=== PATIENT | male | born 1950 | race Two or more races ===

== ENCOUNTER 2024-12-23 04:31 | Inpatient (IN) | payer OTHER, MEDICARE, MEDICAID ==
[~2024-12-23] VITALS: Ht 182.9 cm; Wt 61.1 kg
--- NOTE | 2024-12-23 04:42 | ED.PDOC ---
History of Present Illness HPI Comments 74-year-old male brought in by EMS presents with abnormal labs. Patient is non- verbal at baseline. Patient is coming from [facility]. Patient reportedly had abnormal lab values from blood drawn 2 days ago. Labs were Creatinine, Potassium, and BUN. Patient denies any complaints at this time. Chief Complaint: Abnormal LAB's Time Seen by MD: 04:38 Primary Care Provider: UNKNOWN Reviewed Notes: Medications, Allergies Allergies: Coded Allergies: NO KNOWN ALLERGIES (Unverified , 08/23/17) Home Meds Unable to Obtain Active Prescriptions or Reported Meds Information Source: Emergency Med Personnel Mode of Arrival: EMS Severity: Moderate Timing: Hours Duration: Since onset Prehospital treatment: Pre Press Operator Past Medical History PAST MEDICAL HISTORY: HTN Surgical History: Denies all surgeries Family History Family History: Reviewed,noncontributory to illness Social History Smoker: Non-Smoker Alcohol: Denies ETOH Use Drugs: Denies Drug Use Lives In: Group Home Constitutional: denies: chills, diaphoresis, fatigue, fever, malaise, sweats, weakness, others EENTM: denies: blurred vision, double vision, ear bleeding, ear discharge, ear drainage, ear pain, ear ringing, eye pain, eye redness, hearing loss, mouth pain, mouth swelling, nasal discharge, nose bleeding, nose congestion, nose pain, photophobia, tearing, throat pain, throat swelling, voice changes, others Respiratory: denies: cough, hemoptysis, orthopnea, SOB at rest, shortness of breath, SOB with excertion, stridor, wheezing, others Cardiovascular: denies: chest pain, dizzy spells, diaphoresis, Dyspnea on exertion, edema, irregular heart beat, left arm pain, lightheadedness, palpitati ons, PND, syncope, others Gastrointestinal: denies: abdomen distended, abdominal pain, blood streaked bowels, constipated, diarrhea, dysphagia, difficulty swallowing, hematemesis, melena, nausea, poor appetite, poor fluid intake, rectal bleeding, rectal pain, vomiting, others Genitourinary: denies: burning, dysuria, flank pain, frequency, hematuria, incontinence, penile discharge, penile sore, pain, testicle pain, testicle swelling, urgency, others Neurological: denies: dizziness, fainting, headache, left sided numbness, left sided weakness, numbness, paresthesia, pre-existing deficit, right sided numbness, right sided weakness, seizure, speech problems, tingling, tremors, weakness, others Musculoskeletal: denies: back pain, gout, joint pain, joint swelling, muscle pain, muscle stiffness, neck pain, others Integumetry: denies: bruises, change in color, change in hair/nails, dryness, laceration, lesions, lumps, rash, wounds, others Allergic/Immunocompromised: denies: Difficulty Healing, Frequent Infections, Hives, Itching, others Hematologic/Lymphatic: denies: anemia, blood clots, easy bleeding, easy bruising, swollen glands, others Endocrine: denies: excessive hunger, excessive sweating, excessive thirst, excessive urination, flushing, intolerance to cold, intolerance to heat, unexplained weight gain, unexplained weight loss, others Psychiatric: denies: anxiety, bipolar disorder, depression, hopeless, panic disorder, schizophrenia, sleepless, suicidal, others All Other Systems: Reviewed and Negative Physical Exam General Appearance: No Apparent Distress, Normal HEENT: Normal ENT Inspection, Pharynx Normal, TMs Normal Neck: Full Range of Motion, Non-Tender, Normal, Normal Inspection Respiratory: Chest Non-Tender, Lungs Clear, No Accessory Muscle Use, No Respiratory Distress, Normal Breath Sounds Cardiovascular: No Edema, No JVD, No Murmur, No Gallop, Normal Peripheral Pulses, Regular Rate/Rhythm Breast Exam: Deferred Gastrointestinal: No Organomegaly, Non Tender, No Pulsatile Mass, Normal Bowel Sounds, Soft Genitalia: Deferred Pelvic: Deferred Rectal: Deferred Extremities: No calf tenderness, Normal capillary refill, Normal inspection, Normal range of motion, Non-tender, No pedal edema Musculoskeletal : Apperance: Normal Neurologic: Alert, Normal Mood, No Sensory Deficits Cerebellar Function: Normal Reflexes: Normal Skin: Dry, Normal Color, Warm Lymphatic: No Adenopathy Was a procedure done? Was a procedure done?: No Differential Dx Considerations may include: Dehydration, electrolyte abnormality, infectious etiology X-Ray, Labs, Meds, VS Vital Signs Date Time Temp Pulse Resp B/P (MAP) Pulse Ox O2 Delivery O2 Flow Rate FiO2 12/23/24 05:06 97.9 62 10 176/89 (118) 98 97.9 12/23/24 05:06 62 10 98 Room Air* 0 21 12/23/24 04:34 97.6 70 18 166/94 (118) 94 97.6 Lab Test 12/23/24 04:55 Range/Units White Blood Count 4.2 L 4.4-10.8 10^3/uL Red Blood Count 2.94 L 4.5-5.90 10^6/uL Hemoglobin 8.7 L 13.5-17.5 g/dL Hematocrit 27.1 L 41.0-53.0 % Mean Corpuscular Volume 92.1 80.0-100.0 fL Mean Corpuscular Hemoglobin 29.5 28.0-32.0 pg Mean Corpuscular Hemoglobin Concent 32.0 32.0-36.0 g/dL Red Cell Distribution Width 15.6 H 11.8-14.3 % Platelet Count 184 140-450 10^3/uL Mean Platelet Volume 7.7 6.9-10.8 fL Neutrophils (%) (Auto) 48.1 37.0-80.0 % Lymphocytes (%) (Auto) 40.5 10.0-50.0 % Monocytes (%) (Auto) 9.6 0.0-12.0 % Eosinophils (%) (Auto) 1.5 0.0-7.0 % Basophils (%) (Auto) 0.3 0.0-2.0 % Neutrophils # (Auto) 2.0 1.6-8.6 10 ^3/uL Lymphocytes # (Auto) 1.7 0.4-5.4 10 ^3/uL Monocytes # (Auto) 0.4 0-1.3 10 ^3/uL Eosinophils # (Auto) 0.1 0-0.8 10 ^3/uL Basophils # (Auto) 0 0-0.2 10 ^3/uL Nucleated Red Blood Cells 0.1 % Sodium Level 134 L 136-145 mmol/L Potassium Level 7.5 *H 3.5-5.1 mmol/L Chloride Level 100 98-107 mmol/L Carbon Dioxide Level 21 20-31 mmol/L Anion Gap 13 5-15 Blood Urea Nitrogen 129 *H 9-23 mg/dL Creatinine 10.20 *H 0.700-1.30 mg/dL Glomerular Filtration Rate Calc 5 >90 mL/min BUN/Creatinine Ratio 12.6 10.0-20.0 Serum Glucose 84 74-106 mg/dL Calcium Level 9.7 8.7-10.4 mg/dL Phosphorus Level 9.4 H 2.4-5.1 mg/dL Magnesium Level 2.6 1.6-2.6 mg/dL Troponin I High Sensitivity 45 </=54 ng/L Time of 1ST Reevaluation: 05:08 Reevaluation 1ST: Unchanged Patient Education/Counseling: Diagnosis, Treatment, Prognosis Family Education/Counseling: No Family Present Departure 1 Departure Time of Disposition: 06:03 (Patient with new onset renal failure. We will treat patient for hyper K consult with nephrology and admit patient for further workup) Impression: Primary Impression: Acute renal failure Qualified Codes: N17.9 - Acute kidney failure, unspecified Additional Impression: Hyperkalemia Disposition: 09 ADMITTED INPATIENT Admit to: [facility] Condition: Critical e-Prescriptions Unable to Obtain Active Prescriptions or Reported Meds Critical Care Note Critical Care Time?: Yes Critical care comment: Acute renal failure Authorized and Performed by: Nilda Landin MD Total critical care time: Approximately 44 minutes Due to a high probability of clinically significant, life threatening deterioration, the patient required my highest level of preparedness to intervene emergently and I personally spent this critical care time directly and personally managing the patient. This critical care time included obtaining a history; examining the patient; pulse oximetry; ordering and review of studies; arranging urgent treatment with development of a management plan; evaluation of patient's response to treatment; frequent reassessment; and, discussions with other providers. This critical care time was performed to assess and manage the high probability of imminent, life-threatening deterioration that could result in multi-organ failure. It was exclusive of separately billable procedures and treating other patients and teaching time. Please see my other sections and the rest of the note for further information on patient assessment and treatment. Stability Stability form required: No Heart Score Heart Score: Heart Score Response (Comments) Value History N/A 0 EKG N/A 0 Age N/A 0 Risk Factors N/A 0 Troponin N/A 0 Total 0 I personally scribed for NILDA LANDIN MD ([email or web address]) on 12/23/24 at 04:42. Electronically submitted by Rakan Ray ([email or web address]). NILDA LANDIN MD Dec 23, 2024 04:42
[2024-12-23 05:06] VITALS: PULSE 62; RESP 10; O2SAT 98
[2024-12-23 05:41] LABS: Basophils # (auto) 0 10 ^3/uL (0-0.2); Basophils % (auto) 0.3 % (0.0-2.0); Eosinophils # (auto) 0.1 10 ^3/uL (0-0.8); Eosinophils % (auto) 1.5 % (0.0-7.0); Hematocrit 27.1 % (41.0-53.0); Hemoglobin 8.7 g/dL (13.5-17.5); Lymphocytes # (auto) 1.7 10 ^3/uL (0.4-5.4); Lymphocytes % (auto) 40.5 % (10.0-50.0); Mean Corpuscular Hemoglobin 29.5 pg (28.0-32.0); Mean Corpuscular Volume 92.1 fL (80.0-100.0); Monocytes # (auto) 0.4 10 ^3/uL (0-1.3); Monocytes % (auto) 9.6 % (0.0-12.0); Neutrophils % (auto) 48.1 % (37.0-80.0); Nucleated Red Blood Cells % 0.1 %; Platelet Count (auto) 184 10^3/uL (140-450); Red Blood Cells 2.94 10^6/uL (4.5-5.90); Red Cell Distribution Width 15.6 % (11.8-14.3); White Blood Cell 4.2 10^3/uL (4.4-10.8)
[2024-12-23 05:43] LABS: Anion Gap 13 (5-15); Carbon Dioxide 21 mmol/L (20-31); Chloride 100 mmol/L (98-107)
[2024-12-23 05:44] LABS: Calcium 9.7 mg/dL (8.7-10.4)
[2024-12-23 05:49] LABS: BUN/Creatinine Ratio 12.6 (10.0-20.0); Glucose 84 mg/dL (74-106); Magnesium 2.6 mg/dL (1.6-2.6)
[2024-12-23 05:57] LABS: Sodium 134 mmol/L (136-145)
[2024-12-23 05:58] LABS: Phosphorus 9.4 mg/dL (2.4-5.1)
[2024-12-23 05:59] LABS: Blood Urea Nitrogen 129 mg/dL (9-23); Potassium 7.5 mmol/L (3.5-5.1)
--- NOTE | 2024-12-23 06:01 | DVH ---
EXAM: XR Chest, 1 View CLINICAL INDICATION: ams TECHNIQUE: Frontal view of the chest. COMPARISON: None FINDINGS: LUNGS AND PLEURAL SPACES: Left basilar atelectasis or pneumonia. No pneumothorax. HEART: Unremarkable. No cardiomegaly. MEDIASTINUM: Unremarkable. Normal mediastinal contour. BONES/JOINTS: Unremarkable. No acute fracture. OTHER FINDINGS: . . . IMPRESSION: Left basilar atelectasis or pneumonia.
[2024-12-23] MEDS: AZITHROMYCIN 250 MG TAB PO ONE (06:15)
[2024-12-23] MEDS: CALCIUM GLUC 1,000mg/50ml-NS 50 ML IV SCH (06:19)
[2024-12-23] MEDS: DEXTROSE (50%) 50ML SYRG IV ONE ×2 (06:19→20:03)
[2024-12-23] MEDS: SODIUM BICARB 8.4% 50Meq/50ml SYR Vial IV ONE (06:19)
[2024-12-23] MEDS: InsuLIN REG 1unit/0.01ml Soln (100units/ml) IV ONE ×2 (06:19→20:11)
[2024-12-23] MEDS: SODIUM CHLORIDE 0.9% 1,000 ML IV ONE (06:30)
--- NOTE | 2024-12-23 06:34 | ECG ---
[facility] Test Date: 2024-12-23 Test Time: 06:32:08 Pat Name: JANA VELASQUEZ Department: ED Room: [address] [place] [address] Gender: M Doors Prefitter: KATYA : 1950 Requested By: NILDA HERNANDES Order Number: [id number] Reading MD: Jovany Garcia Measurements Intervals [place] Rate: 69 P: 38 [place]: 239 QRS: -26 QRSD: 119 T: 17 QT: 426 QTc: 457 Interpretive Statements Sinus rhythm Prolonged [place] interval Nonspecific intraventricular conduction delay Probable anterior infarct, old Electronically Signed On 12-23-2024 13:21:51 PDT by Jovany Garcia Please click the below link to view image of tracing.
[2024-12-23] MEDS: CEFEPIME 2GM/50ML NS 50 ML IV ONE (06:50)
[2024-12-23] MEDS ORDERED: NITROGLYCERIN 0.4 MG SL TAB SL PRN (07:00)
[2024-12-23] MEDS ORDERED: ACETAMINOPHEN 325 MG TAB PO PRN (07:00)
[2024-12-23] MEDS ORDERED: MORPHINE SULFATE INJ 2 MG/ml SYRG IV PRN (07:00)
[2024-12-23] MEDS ORDERED: ONDANSETRON HCL 4 MG/2 ML VIAL IV PRN (07:00)
--- NOTE | 2024-12-23 07:57 | DVHHP2 ---
History of Present Illness Reason for Visit: Abnormal Labs History of Present Illness Henry Gates is a 74-year-old male who came to the hospital from [facility], unknown past medical history, who came due to abnormal labs. Patient had labs drawn on 12/22/2024 that revealed critically elevated BUN, CREAT, and KCL. When patient arrived to the ER, labs were drawn that showed similar results. Hyperkalemia protocol was initiated, patient will be admitted, and nephrology consulted. Patient had labs drawn at [facility] on 12/15/2024 that showed normal lab values for BUN, CREAT, and KCL. Patient will be admitted with a nephrology consult. I ordered for a Jane catheter to be placed. When the nurse went to place it she discovered that his urethra was mostly closed and no catheter could be placed. On assessment his urethra is mostly closed, he has a pin sized opening with continuous small drip of urine coming out. The penis is edematous, his bladder is distended and firm. I called urology for a suprapubic catheter placement. They are not able to come to bedside at this moment. They recommended an IR consult for immediate suprapubic catheter placement. Obtained a bladder scan that showed more than 1000 mls of urine. Spoke with IR, will get PT/PTT labs and bladder ultrasound, and they will add the patient into their schedule. Past Surgical History unknown Smoke: No ALCOHOL: none Drugs: None Lives: Shelter Review of Systems Constitutional: No: Fever, Chills, Sweats, Weakness, Malaise, Other Eyes: No: Pain, Vision change, Conjunctivae inflammation, Eyelid inflammation, Other, Redness ENT: No: Ear pain, Ear discharge, Nose pain, Nose discharge, Nose congestion, Mouth pain, Mouth swelling, Throat pain, Throat swelling, Other Respiratory: No: Cough, Dry, Shortness of breath, SOB with excertion, Wheezing, Hemoptysis, Pleuritic Pain, Sputum, Wheezing, Other Cardiovascular: No: Chest Pain, Palpitations, Orthopnea, Paroxysmal Noc. Dyspnea, Edema, Lt Headedness, Other Gastrointestinal: No: Nausea, Vomiting, Abdominal Pain, Diarrhea, Constipation, Melena, Hematochezia, Other Genitourinary: No Dysuria, No Frequency, No Incontinence, No Hematuria, No Retention, No Other Musculoskeletal: No: other, neck pain, shoulder pain, arm pain, back pain, hand pain, leg pain, foot pain Skin: No: Rash, Lesions, Jaundice, Bruising, Other Neurological: No: Weakness, Numbness, Incoordination, Change in speech, Confusion, Seizures, Other Other no complaints at this time, came for abnormal labs Allergies: Coded Allergies: NO KNOWN ALLERGIES (Unverified , 08/23/17) Medications Current Medications Medications Dose Ordered Sig/Isaias Route Start Time Stop Time Status Last Admin Dose Admin Ondansetron HCl 4 mg Q4HP PRN IV 12/23/24 07:00 UNV Acetaminophen 650 mg Q6HP PRN PO 12/23/24 07:00 UNV Nitroglycerin 0.4 mg Q5MINP PRN SL 12/23/24 07:00 UNV Morphine Sulfate 2 mg Q30M PRN IV 12/23/24 07:00 UNV Exam Vital Signs Vital Signs Date Time Temp Pulse Resp B/P (MAP) Pulse Ox O2 Delivery O2 Flow Rate FiO2 12/23/24 06:32 69 12/23/24 05:06 97.9 10 176/89 (118) 98 97.9 12/23/24 05:06 Room Air* 0 21 General Appearance: Alert, Cooperative, mild distress, Other (Oriented x 2) HEENT: Atraumatic, PERRLA Respiratory: Clear to auscultation, Normal air movement Cardiovascular: Regular rate, Normal S1, Normal S2 Abdominal: Normal bowel sounds, No tenderness, Other (Pelvic distention and firm, penis is edematous, urethra is leaking small amounts of urine) Extremities: No clubbing, No cyanosis, No edema, Normal pulses Skin: No rashes, No breakdown, No significant lesion (multiple scabs on bilateral lower extremities) Labs/Xrays Labs Test 12/23/24 06:15 12/23/24 04:55 Range/Units Lactic Acid Level 0.6 0.4-2.0 mmol/L White Blood Count 4.2 L 4.4-10.8 10^3/uL Red Blood Count 2.94 L 4.5-5.90 10^6/uL Hemoglobin 8.7 L 13.5-17.5 g/dL Hematocrit 27.1 L 41.0-53.0 % Mean Corpuscular Volume 92.1 80.0-100.0 fL Mean Corpuscular Hemoglobin 29.5 28.0-32.0 pg Mean Corpuscular Hemoglobin Concent 32.0 32.0-36.0 g/dL Red Cell Distribution Width 15.6 H 11.8-14.3 % Platelet Count 184 140-450 10^3/uL Mean Platelet Volume 7.7 6.9-10.8 fL Neutrophils (%) (Auto) 48.1 37.0-80.0 % Lymphocytes (%) (Auto) 40.5 10.0-50.0 % Monocytes (%) (Auto) 9.6 0.0-12.0 % Eosinophils (%) (Auto) 1.5 0.0-7.0 % Basophils (%) (Auto) 0.3 0.0-2.0 % Neutrophils # (Auto) 2.0 1.6-8.6 10 ^3/uL Lymphocytes # (Auto) 1.7 0.4-5.4 10 ^3/uL Monocytes # (Auto) 0.4 0-1.3 10 ^3/uL Eosinophils # (Auto) 0.1 0-0.8 10 ^3/uL Basophils # (Auto) 0 0-0.2 10 ^3/uL Nucleated Red Blood Cells 0.1 % Sodium Level 134 L 136-145 mmol/L Potassium Level 7.5 *H 3.5-5.1 mmol/L Chloride Level 100 98-107 mmol/L Carbon Dioxide Level 21 20-31 mmol/L Anion Gap 13 5-15 Blood Urea Nitrogen 129 *H 9-23 mg/dL Creatinine 10.20 *H 0.700-1.30 mg/dL Glomerular Filtration Rate Calc 5 >90 mL/min BUN/Creatinine Ratio 12.6 10.0-20.0 Serum Glucose 84 74-106 mg/dL Calcium Level 9.7 8.7-10.4 mg/dL Phosphorus Level 9.4 H 2.4-5.1 mg/dL Magnesium Level 2.6 1.6-2.6 mg/dL Troponin I High Sensitivity 45 </=54 ng/L EXAM: XR Chest, 1 View FINDINGS: LUNGS AND PLEURAL SPACES: Left basilar atelectasis or pneumonia. No pneumothorax. HEART: Unremarkable. No cardiomegaly. MEDIASTINUM: Unremarkable. Normal mediastinal contour. BONES/JOINTS: Unremarkable. No acute fracture. OTHER FINDINGS: . . . IMPRESSION: Left basilar atelectasis or pneumonia. Assessment/Plan Assessment/Plan Assessment: Acute renal failure, Hyperkalemia, Urinary retention, Pneumonia, Anemia, Plan: Admit to [facility], Nephrology consult, Urology consult, IV hydration, IV antibiotics, Hyperkalemia protocol, Manage/Monitor electrolytes closely, Suprapubic catheter, Plan discussed with: Patient My Orders Orders - LEANNA SMITH DISPATCHER REFINERY Procedure Category Date Status Time Insert Jane Catheter [facility] 12/23/24 In Process 06:54 Strict I & O [facility] 12/23/24 In Process 06:54 Admit ADMIT 12/23/24 Transmitted 06:54 Code Status CODE 12/23/24 Transmitted 06:54 Renal DIET 12/23/24 Transmitted Standard(2gna,3gk,Lopho) Breakfast Ondansetron Hcl [facility] 12/23/24 Logged (Zofran) 07:00 Fall Risk Precautions [facility] 12/23/[address] 06:54 Complete Blood Count LAB 12/24/24 Verified 04:00 Comprehensive LAB 12/24/24 Verified Metabolic Panel 04:00 Condition: Critical [facility] 12/23/24 In Process 06:54 Acetaminophen Tablet [facility] 12/23/24 Logged (Tylenol Tablet) 07:00 Nitroglycerin [facility] 12/23/24 Logged Sublingual (Ntrostat 07:00 Morphine Sulfate [facility] 12/23/24 Logged Injection 07:00 Stat Ekg For Chest [facility] 12/23/24 In Process Pain 06:54 Notify Md Of Changes [facility] 12/23/24 In Process From Base 06:54 [employer] Consultant For [facility] 12/23/24 In Process 24 Hours 06:54 Emergency Dysrhythmia [facility] 12/23/24 In Process Protocol 06:54 Rhythm Strips Once [facility] 12/23/24 In Process Every Shift 06:54 Oxygen By Nasal RT 12/23/24 Transmitted Cannula 06:54 *[facility] CONS 12/23/24 Transmitted -[place] 06:58 Date of Service: Dec 23, 2024 Billing Provider: LEANNA SMITH Common Visit Codes: [id number] INP/OBS CARE (HIGH) LEANNA SMITH DISPATCHER REFINERY Dec 23, 2024 07:57
[2024-12-23 08:00] VITALS: PULSE 64; RESP 12; O2SAT 95
[2024-12-23 10:10] LABS: INR 1.07 (0.9-1.15); Partial Thromboplastin Time 31.8 SEC (24.5-34.5); Prothrombin Time 11.3 sec (9.3-11.8)
[2024-12-23 10:14] LABS: Alanine Aminotransferase 16 U/L (7-40); Albumin 3.3 g/dL (3.2-4.8); Alkaline Phosphatase 91 U/L (46-116); Anion Gap 13 (5-15); BUN/Creatinine Ratio 13.3 (10.0-20.0); Calcium 9.5 mg/dL (8.7-10.4); Carbon Dioxide 22 mmol/L (20-31); Chloride 102 mmol/L (98-107); Sodium 137 mmol/L (136-145); Total Protein 6.6 g/dL (5.7-8.2)
[2024-12-23 10:15] LABS: Aspartate Aminotransferase 10 U/L (13-40); Bilirubin, Total 0.2 mg/dL (0.2-1.0); Glucose 71 mg/dL (74-106)
[2024-12-23 10:16] LABS: Blood Urea Nitrogen 134 mg/dL (9-23); Potassium 6.4 mmol/L (3.5-5.1)
[2024-12-23] MEDS: fentaNYL CITRATE 100 MCG/2 ML VL IV ONE (10:45)
[2024-12-23] MEDS: MIDAZOLAM HCL 2MG/2ML 2ml VIAL (1mg/ml) IV ONE (10:45)
[2024-12-23] MEDS: LIDOCAINE 2%HCL (LOCAL ANESTH.) INJ 10ml MDV ONE (11:43)
--- NOTE | 2024-12-23 12:11 | DVH ---
History: urinary retention Comparison: None Technique: Grayscale and color Doppler ultrasound of the pelvis was obtained. Pre-and postvoid images of the bladder were obtained. FINDINGS/IMPRESSION: Bladder is distended measuring 1236 cc. Debris is present in the urinary bladder. Right ureteral jet is not visualized at this time.
[2024-12-23 12:48] LABS: Urine Bacteria FEW /hpf (None Seen); Urine Blood 1+ /uL (Negative); Urine Clarity Turbid (Clear); Urine Color Colorless (Yellow); Urine Mucus FEW (None Seen); Urine Protein, UAD Negative (Negative); Urine Specific Gravity 1.009 (1.001-1.035); Urine Squamous Epithelial Cell None Seen /hpf (<5); Urine Urobilinogen Normal (Negative); Urine WBC 212 /HPF (0-3)
[2024-12-23 12:57] LABS: Protein, Urine 10.1 mg/dL (1-14)
[2024-12-23 13:00] LABS: Creatinine, Urine 34.26 mg/dL (30.0-125.0)
[2024-12-23] MEDS: BUMETANIDE 2.5mg/10ml (0.25 mg/ml) INJ IV ONE (13:52)
[2024-12-23] MEDS: SODIUM BICARB 50mEq/50ml Vial 150 ML in D5W 5% 1,000 ML IV SCH (13:55)
--- NOTE | 2024-12-23 14:31 | DVHINCON2 ---
Date of service: Dec 23, 2024 Referring Physician Hospitalist Reason for Consultation Meatal stenosis Urinary retention History of Present Illness 74-year-old male who came to the hospital from [facility], unknown past medical history, who came due to abnormal labs. Patient had labs drawn on 12/22/2024 that revealed critically elevated BUN, CREAT, and KCL. When patient arrived to the ER, labs were drawn that showed similar results. Hyperkalemia protocol was initiated, patient will be admitted, and nephrology consulted. Patient had labs drawn at [facility] on 12/15/2024 that showed normal lab values for BUN, CREAT, and KCL. Patient will be admitted with a nephrology consult. I ordered for a Jane catheter to be placed. When the nurse went to place it she discovered that his urethra was mostly closed and no catheter could be placed. On assessment his urethra is mostly closed, he has a pin sized opening with continuous small drip of urine coming out. The penis is edematous, his bladder is distended and firm. I called urology for a suprapubic catheter placement. They are not able to come to bedside at this moment. They recommended an IR consult for immediate suprapubic catheter placement. Obtained a bladder scan that showed more than 1000 mls of urine. Spoke with IR, will get PT/PTT labs and bladder ultrasound, and they will add the patient into their schedule. Past Medical History unknown Past Surgical History Unknown Family History: FH: myocardial infarction G8 FATHER Allergies: Coded Allergies: NO KNOWN ALLERGIES (Unverified , 08/23/17) Home Meds Unable to Obtain Active Prescriptions or Reported Meds Current Medications Current Medications Medications (Trade) Dose Ordered Sig/Isaias Route PRN Reason Start Time Stop Time Status Last Admin Calcium Gluconate/ Sodium Chloride 50 ml @ 100 mls/hr Q30M IV 12/23/24 06:00 12/23/24 06:59 DC 12/23/24 06:30 Ondansetron HCl (Zofran) 4 mg Q4HP PRN IV NAUSEA / VOMITING 12/23/24 07:00 Acetaminophen (Tylenol Tablet) 650 mg Q6HP PRN PO PAIN SCALE 1-3 OR TEMP>100.4 12/23/24 07:00 Nitroglycerin (Ntrostat Sublingual) 0.4 mg Q5MINP PRN SL FOR CHEST PAIN 12/23/24 07:00 Morphine Sulfate 2 mg Q30M PRN IV FOR CHEST PAIN 12/23/24 07:00 Sodium Bicarbonate 150 ml/Dextrose 1,150 ml @ 100 mls/hr [id number] IV 12/23/24 08:00 12/23/24 13:55 Ceftriaxone Sodium 50 ml @ 100 mls/hr DAILY@09 IV 12/24/24 09:00 Azithromycin 250 ml @ 125 mls/hr DAILY IV 12/24/24 10:00 Review of Systems Constitutional: No: Fever, Chills, Sweats, Weakness, Malaise, Other Eyes: No: Pain, Vision change, Conjunctivae inflammation, Eyelid inflammation, Other, Redness ENT: No: Ear pain, Ear discharge, Nose pain, Nose discharge, Nose congestion, Mouth pain, Mouth swelling, Throat pain, Throat swelling, Other Respiratory: No: Cough, Dry, Shortness of breath, SOB with excertion, Wheezing, Hemoptysis, Pleuritic Pain, Sputum, Wheezing, Other Cardiovascular: No: Chest Pain, Palpitations, Orthopnea, Paroxysmal Noc. Dyspnea, Edema, Lt Headedness, Other Gastrointestinal: No: Nausea, Vomiting, Abdominal Pain, Diarrhea, Constipation, Melena, Hematochezia, Other Genitourinary: No Dysuria, No Frequency, No Incontinence, No Hematuria, No Retention, No Other Musculoskeletal: No: other, neck pain, shoulder pain, arm pain, back pain, hand pain, leg pain, foot pain Skin: No: Rash, Lesions, Jaundice, Bruising, Other Neurological: No: Weakness, Numbness, Incoordination, Change in speech, Confusion, Seizures, Other Other no complaints at this time, came for abnormal labs Allergies: Coded Allergies: NO KNOWN ALLERGIES (Unverified , 08/23/17) Medications Current Medications Medications Dose Ordered Sig/Isaias Route Start Time Stop Time Status Last Admin Dose Admin Ondansetron HCl 4 mg Q4HP PRN IV 12/23/24 07:00 UNV Acetaminophen 650 mg Q6HP PRN PO 12/23/24 07:00 UNV Nitroglycerin 0.4 mg Q5MINP PRN SL 12/23/24 07:00 UNV Morphine Sulfate 2 mg Q30M PRN IV 12/23/24 07:00 UNV Vital Signs Vital Signs Date Time Temp Pulse Resp B/P (MAP) Pulse Ox O2 Delivery O2 Flow Rate FiO2 12/23/24 13:52 154/84 12/23/24 13:00 62 12 97 12/23/24 08:00 97.6 97.6 12/23/24 08:00 Room Air* 0 21 Physical Exam Vital Signs Date Time Temp Pulse Resp B/P (MAP) Pulse Ox O2 Delivery O2 Flow Rate FiO2 12/23/24 06:32 69 12/23/24 05:06 97.9 10 176/89 (118) 98 97.9 12/23/24 05:06 Room Air* 0 21 General Appearance: Alert, Cooperative, mild distress, Other (Oriented x 2) HEENT: Atraumatic, PERRLA Respiratory: Clear to auscultation, Normal air movement Cardiovascular: Regular rate, Normal S1, Normal S2 Abdominal: Normal bowel sounds, No tenderness, Other (Pelvic distention and firm, penis is edematous, urethra is leaking small amounts of urine) Extremities: No clubbing, No cyanosis, No edema, Normal pulses Skin: No rashes, No breakdown, No significant lesion (multiple scabs on bilateral lower extremities) Labs/Diagnostic Data Labs Test 12/23/24 12:32 12/23/24 09:36 12/23/24 06:15 12/23/24 04:55 Range/Units Urine Color Colorless Yellow Urine Clarity Turbid H Clear Urine pH 7.0 5.0-9.0 Urine Specific [place] 1.009 1.001-1.035 Urine Protein Negative Negative Urine Ketones Negative Negative Urine Blood 1+ H Negative /uL Urine Nitrite Negative Negative Urine Bilirubin Negative Negative Urine Urobilinogen Normal Negative mg/dL Urine Leukocyte Esterase 3+ Negative /uL Urine RBC 179 0 - 3 /hpf Urine Microscopic WBC 212 H 0-3 /HPF Urine Squamous Epithelial Cells None seen <5 /hpf Urine Bacteria Few H None Seen /hpf Urine Mucus Few None Seen Urine Creatinine 34.26 30.0-125.0 mg/dL Urine Sodium 110 40-220 mmol/L Urine Glucose Normal Normal mg/dL Urine Total Protein 10.1 1-14 mg/dL Prothrombin Time 11.3 9.3-11.8 sec Prothrombin Time INR 1.07 0.9-1.15 Activated Partial Thromboplast Time 31.8 24.5-34.5 SEC Sodium Level 137 136-145 mmol/L Potassium Level 6.4 *H 3.5-5.1 mmol/L Chloride Level 102 98-107 mmol/L Carbon Dioxide Level 22 20-31 mmol/L Anion Gap 13 5-15 Blood Urea Nitrogen 134 *H 9-23 mg/dL Creatinine 10.05 *H 0.700-1.30 mg/dL Glomerular Filtration Rate Calc 5 >90 mL/min BUN/Creatinine Ratio 13.3 10.0-20.0 Serum Glucose 71 L 74-106 mg/dL Calcium Level 9.5 8.7-10.4 mg/dL Total Bilirubin 0.2 0.2-1.0 mg/dL Aspartate Amino Transferase (AST) 10 L 13-40 U/L Alanine Aminotransferase (ALT) 16 7-40 U/L Alkaline Phosphatase 91 46-116 U/L Total Protein 6.6 5.7-8.2 g/dL Albumin 3.3 3.2-4.8 g/dL Lactic Acid Level 0.6 0.4-2.0 mmol/L White Blood Count 4.2 L 4.4-10.8 10^3/uL Red Blood Count 2.94 L 4.5-5.90 10^6/uL Hemoglobin 8.7 L 13.5-17.5 g/dL Hematocrit 27.1 L 41.0-53.0 % Mean Corpuscular Volume 92.1 80.0-100.0 fL Mean Corpuscular Hemoglobin 29.5 28.0-32.0 pg Mean Corpuscular Hemoglobin Concent 32.0 32.0-36.0 g/dL Red Cell Distribution Width 15.6 H 11.8-14.3 % Platelet Count 184 140-450 10^3/uL Mean Platelet Volume 7.7 6.9-10.8 fL Neutrophils (%) (Auto) 48.1 37.0-80.0 % Lymphocytes (%) (Auto) 40.5 10.0-50.0 % Monocytes (%) (Auto) 9.6 0.0-12.0 % Eosinophils (%) (Auto) 1.5 0.0-7.0 % Basophils (%) (Auto) 0.3 0.0-2.0 % Neutrophils # (Auto) 2.0 1.6-8.6 10 ^3/uL Lymphocytes # (Auto) 1.7 0.4-5.4 10 ^3/uL Monocytes # (Auto) 0.4 0-1.3 10 ^3/uL Eosinophils # (Auto) 0.1 0-0.8 10 ^3/uL Basophils # (Auto) 0 0-0.2 10 ^3/uL Nucleated Red Blood Cells 0.1 % Phosphorus Level 9.4 H 2.4-5.1 mg/dL Magnesium Level 2.6 1.6-2.6 mg/dL Creatine Kinase 33 L 46-171 U/L Troponin I High Sensitivity 45 </=54 ng/L PATIENT: JANA VELASQUEZ ACCT: [id number] UNIT: [id number] : 1950 LOC: OVERFLOW ROOM / BED: [address] [place] [address] AGE / SEX: 74 / M ADM STATUS: ADM IN SERVICE [id number] ORDERING PHYSICIAN: LEANNA SMITH PROCEDURE(s): BLDR - BLADDER REASON: urinary retention ORDER NUMBER(s): [id number], ACCESSION NUMBER(s): [id number] History: urinary retention Comparison: None Technique: Grayscale and color Doppler ultrasound of the pelvis was obtained. Pre-and postvoid images of the bladder were obtained. FINDINGS/IMPRESSION: Bladder is distended measuring 1236 cc. Debris is present in the urinary bladder. Right ureteral jet is not visualized at this time. ATED BY: JASON ACE MD DICTATED DATE/TIME: 12/23/24 1209 SIGNED BY: JASON ACE MD SIGNED DATE/TIME: 12/23/24 1209 CC: Assessment Urethral stricture/meatal stenosis Azotemia Plan/Recommendation SPT placement When metabolic derrangement resolved, will need cystoscopy with DVIU and Jane catheter placement [place] CT Scan AP NC Plan discussed with: TYRON Funez MD Dec 23, 2024 14:31
--- NOTE | 2024-12-23 15:42 | DVHINCON2 ---
Date of service: Dec 23, 2024 Referring Physician Hospitalist Reason for Consultation Acute kidney injury History of Present Illness 74-year-old male patient is poor historian unable to obtain history patient presented from a chronic care facility due to abnormal labs. Was noted to have BUN greater than 100 and a potassium greater than six. Per records apparently patient had normal baseline renal function less than 30 days ago. Nephrology consulted for acute management. Patient had distended bladder Jane catheter was attempted but failed placement. Interventional Radiology was consulted and urology suprapubic catheter was placed Allergies: Coded Allergies: NO KNOWN ALLERGIES (Unverified , 08/23/17) Home Meds Unable to Obtain Active Prescriptions or Reported Meds Current Medications Current Medications Medications (Trade) Dose Ordered Sig/Isaias Route PRN Reason Start Time Stop Time Status Last Admin Calcium Gluconate/ Sodium Chloride 50 ml @ 100 mls/hr Q30M IV 12/23/24 06:00 12/23/24 06:59 DC 12/23/24 06:30 Ondansetron HCl (Zofran) 4 mg Q4HP PRN IV NAUSEA / VOMITING 12/23/24 07:00 Acetaminophen (Tylenol Tablet) 650 mg Q6HP PRN PO PAIN SCALE 1-3 OR TEMP>100.4 12/23/24 07:00 Nitroglycerin (Ntrostat Sublingual) 0.4 mg Q5MINP PRN SL FOR CHEST PAIN 12/23/24 07:00 Morphine Sulfate 2 mg Q30M PRN IV FOR CHEST PAIN 12/23/24 07:00 Sodium Bicarbonate 150 ml/Dextrose 1,150 ml @ 100 mls/hr [id number] IV 12/23/24 08:00 12/23/24 13:55 Ceftriaxone Sodium 50 ml @ 100 mls/hr DAILY@09 IV 12/24/24 09:00 Azithromycin 250 ml @ 125 mls/hr DAILY IV 12/24/24 10:00 Family History: FH: myocardial infarction G8 FATHER Review of Systems Can not obtain patient was nonverbal H&P Exam Vital Signs/I&O Vital Sign Date Time Temp Pulse Resp B/P (MAP) Pulse Ox O2 Delivery O2 Flow Rate FiO2 12/23/24 14:00 61 11 153/85 (107) 97 12/23/24 08:00 97.6 97.6 12/23/24 08:00 Room Air* 0 21 Intake and Output 12/22/24 12/23/24 19:00 07:00 Intake Total 100 ml Balance 100 ml IV Total 100 ml Physical Exam Frail elderly male Alert but nonverbal Regular rate and rhythm Abdomen is soft status post suprapubic Jane catheter with clear yellow urine No ankle edema Labs/Diagnostic Data Labs/Diagnostic Data Laboratory Tests Test 12/23/24 12:32 12/23/24 09:36 12/23/24 06:15 12/23/24 04:55 Range/Units Urine Color Colorless Yellow Urine Clarity Turbid H Clear Urine pH 7.0 5.0-9.0 Urine Specific [place] 1.009 1.001-1.035 Urine Protein Negative Negative Urine Ketones Negative Negative Urine Blood 1+ H Negative /uL Urine Nitrite Negative Negative Urine Bilirubin Negative Negative Urine Urobilinogen Normal Negative mg/dL Urine Leukocyte Esterase 3+ Negative /uL Urine RBC 179 0 - 3 /hpf Urine Microscopic WBC 212 H 0-3 /HPF Urine Squamous Epithelial Cells None seen <5 /hpf Urine Bacteria Few H None Seen /hpf Urine Mucus Few None Seen Urine Creatinine 34.26 30.0-125.0 mg/dL Urine Sodium 110 40-220 mmol/L Urine Glucose Normal Normal mg/dL Urine Total Protein 10.1 1-14 mg/dL Prothrombin Time 11.3 9.3-11.8 sec Prothrombin Time INR 1.07 0.9-1.15 Activated Partial Thromboplast Time 31.8 24.5-34.5 SEC Sodium Level 137 134 L 136-145 mmol/L Potassium Level 6.4 *H 7.5 *H 3.5-5.1 mmol/L Chloride Level 102 100 98-107 mmol/L Carbon Dioxide Level 22 21 20-31 mmol/L Anion Gap 13 13 5-15 Blood Urea Nitrogen 134 *H 129 *H 9-23 mg/dL Creatinine 10.05 *H 10.20 *H 0.700-1.30 mg/dL Glomerular Filtration Rate Calc 5 5 >90 mL/min BUN/Creatinine Ratio 13.3 12.6 10.0-20.0 Serum Glucose 71 L 84 74-106 mg/dL Calcium Level 9.5 9.7 8.7-10.4 mg/dL Total Bilirubin 0.2 0.2-1.0 mg/dL Aspartate Amino Transferase (AST) 10 L 13-40 U/L Alanine Aminotransferase (ALT) 16 7-40 U/L Alkaline Phosphatase 91 46-116 U/L Total Protein 6.6 5.7-8.2 g/dL Albumin 3.3 3.2-4.8 g/dL Lactic Acid Level 0.6 0.4-2.0 mmol/L White Blood Count 4.2 L 4.4-10.8 10^3/uL Red Blood Count 2.94 L 4.5-5.90 10^6/uL Hemoglobin 8.7 L 13.5-17.5 g/dL Hematocrit 27.1 L 41.0-53.0 % Mean Corpuscular Volume 92.1 80.0-100.0 fL Mean Corpuscular Hemoglobin 29.5 28.0-32.0 pg Mean Corpuscular Hemoglobin Concent 32.0 32.0-36.0 g/dL Red Cell Distribution Width 15.6 H 11.8-14.3 % Platelet Count 184 140-450 10^3/uL Mean Platelet Volume 7.7 6.9-10.8 fL Neutrophils (%) (Auto) 48.1 37.0-80.0 % Lymphocytes (%) (Auto) 40.5 10.0-50.0 % Monocytes (%) (Auto) 9.6 0.0-12.0 % Eosinophils (%) (Auto) 1.5 0.0-7.0 % Basophils (%) (Auto) 0.3 0.0-2.0 % Neutrophils # (Auto) 2.0 1.6-8.6 10 ^3/uL Lymphocytes # (Auto) 1.7 0.4-5.4 10 ^3/uL Monocytes # (Auto) 0.4 0-1.3 10 ^3/uL Eosinophils # (Auto) 0.1 0-0.8 10 ^3/uL Basophils # (Auto) 0 0-0.2 10 ^3/uL Nucleated Red Blood Cells 0.1 % Phosphorus Level 9.4 H 2.4-5.1 mg/dL Magnesium Level 2.6 1.6-2.6 mg/dL Creatine Kinase 33 L 46-171 U/L Troponin I High Sensitivity 45 </=54 ng/L Assessment Severe acute kidney injury likely in the setting of obstruction Patient has urethra obstruction Status post suprapubic catheter Metabolic acidosis Hyperkalemia Anemia knife on setting of kidney disease Strict Is&Os on suprapubic catheter Clinically patient appears to be volume depleted started on sodium bicarbonate drip Monitoring urinary output Urology on the case sepsis w/u Avoid hypotension Medical treatment for elevated potassium , new labs No emergent indication for hemodialysis if patient response to medical therapy, patient however we will require close monitoring to determine adequate response critical care time 35min Plan discussed with: Patient JULIEN LANDON MD Dec 23, 2024 15:42
[2024-12-23 17:44] LABS: Chloride 98 mmol/L (98-107); Sodium 136 mmol/L (136-145)
[2024-12-23 17:45] LABS: Anion Gap 11 (5-15); Calcium 9.7 mg/dL (8.7-10.4); Carbon Dioxide 27 mmol/L (20-31)
[2024-12-23 17:50] LABS: BUN/Creatinine Ratio 13.6 (10.0-20.0)
[2024-12-23 17:52] LABS: Glucose 128 mg/dL (74-106)
[2024-12-23 17:53] LABS: Blood Urea Nitrogen 111 mg/dL (9-23); Potassium 5.9 mmol/L (3.5-5.1)
--- NOTE | 2024-12-23 18:23 | DVH ---
CLINICAL HISTORY: urinary retention TECHNIQUE: CT of the abdomen and pelvis was performed without intravenous contrast. This exam was per formed according to our departmental dose optimization program. Up-to-date CT equipment and radiation dose reduction techniques are utilized as appropriate. CTDI: 7.11 DLP: 363.31 WID: COMPARISON: None FINDINGS: Lower Thorax: Mild cardiomegaly with trace pericardial effusion. At least mild calcified coronary art flori disease partially imaged. Linear subsegmental atelectasis in the bilateral lower lobes. Calcified granuloma in the left lower lobe. Liver and Biliary system: The superior most dome of the liver is not included in the field of view. G rossly unremarkable unopacified liver. Gallbladder is normal caliber. There is no biliary ductal dila tation. Spleen: Unremarkable. Adrenal Glands and Kidneys: Normal adrenal glands. Mild bilateral hydroureteronephrosis leading to th e level of the urinary bladder. There is no nephrolithiasis. Pancreas and Retroperitoneum: Mildly atrophic pancreas. No retroperitoneal adenopathy. Aorta and Major Vessels: [id number] calcified plaque in the aortoiliac vessels. Ectasia of the bilateral internal iliac arteries. There is aneurysm of the infrarenal abdominal aorta measuring 3.4 cm transverse and 3.2 cm AP on series 601, image 47 and series 602, image 66. There is a dissection i n the infrarenal abdominal aorta extending to the left common iliac artery, not optimally evaluated w ithout contrast. Bowel, Mesentery and Peritoneal space: Normal caliber small and large bowel. Moderate retained stool in the colon. Normal appendix. No free air or fluid collection. Pelvis: Moderate distention of the urinary bladder. There is a suprapubic catheter / drain in place i nto the urinary bladder. Mild prostatomegaly. There is no pelvic lymphadenopathy. Abdominal wall and Osseous Structures: There is a dynamic hip screw in the proximal right femur. Mult ilevel lower thoracic and lumbar spondylosis. No destructive osseous lesion. Mild body wall edema. IMPRESSION: 1. Moderate distention of the urinary bladder with a suprapubic catheter / drain in place. 2. Mild bilateral hydroureteronephrosis leading to the level of the distended urinary bladder likely due to reflux. 3. Mild cardiomegaly and at least mild partially imaged calcified coronary artery disease. 4. 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
--- NOTE | 2024-12-23 19:40 | DVH ---
CT CT GUIDANCE FOR NEEDLE PLACEME, HISTORY: SUPRAPUBIC CATH PLCMNT unable to place a Jane catheter due to urinary retention and COMPARISON: None PROCEDURE: Informed consent was obtained. The patient was placed supine on the CT scanner. IV sedatio n was administered. There was localized using ultrasound guidance. The Super pubic region was cleaned and prepped sterility. Using ultrasound guidance a BD suprapubic catheter kit was used to trocar A6 [place] catheter into the urinary bladder. This was confirmed using CT guidance. It was then connected to a drainage bag and sutured in place. A sterile dressing was placed. Post procedure CT imaging thr ough the drain site was obtained. DLP = 723 mGy-cm. SEDATION: Dr. Shantel Bella was personally responsible for the administration of moderate sedation during the procedure performed, including the use of an independent trained observer who had no other duties during the procedure. The drugs utilized were IV fentanyl and versed (see nursing log for details). The total time of supervision by the attending physician was approximately 30 minutes. FINDINGS: Ultrasound and CT scan shows a distended urinary bladder. Placement of A6 sinhala suprapubic catheter into the urinary bladder. IMPRESSION: Ultrasound and CT scan shows a distended urinary bladder. Placement of A6 sinhala suprapubic catheter into the urinary bladder. PLAN: Routine tube care. If drainage is inadequate consider attaching A suction bag. Upsize or exchan ge is also suggested for a pigtail catheter if drainage is inadequate.
--- NOTE | 2024-12-23 19:40 | DVH ---
CT CT GUIDANCE FOR NEEDLE PLACEME, HISTORY: SUPRAPUBIC CATH PLCMNT unable to place a Jane catheter due to urinary retention and COMPARISON: None PROCEDURE: Informed consent was obtained. The patient was placed supine on the CT scanner. IV sedatio n was administered. There was localized using ultrasound guidance. The Super pubic region was cleaned and prepped sterility. Using ultrasound guidance a BD suprapubic catheter kit was used to trocar A6 [place] catheter into the urinary bladder. This was confirmed using CT guidance. It was then connected to a drainage bag and sutured in place. A sterile dressing was placed. Post procedure CT imaging thr ough the drain site was obtained. DLP = 723 mGy-cm. SEDATION: Dr. Shantel Bella was personally responsible for the administration of moderate sedation during the procedure performed, including the use of an independent trained observer who had no other duties during the procedure. The drugs utilized were IV fentanyl and versed (see nursing log for details). The total time of supervision by the attending physician was approximately 30 minutes. FINDINGS: Ultrasound and CT scan shows a distended urinary bladder. Placement of A6 romanian suprapubic catheter into the urinary bladder. IMPRESSION: Ultrasound and CT scan shows a distended urinary bladder. Placement of A6 romanian suprapubic catheter into the urinary bladder. PLAN: Routine tube care. If drainage is inadequate consider attaching A suction bag. Upsize or exchan ge is also suggested for a pigtail catheter if drainage is inadequate.
[2024-12-23 19:45] VITALS: PULSE 71; RESP 10; O2SAT 95
[2024-12-23] MEDS: FUROSEMIDE 100 MG/10ML VIAL IV ONE (20:03)
[2024-12-24 05:49] LABS: Basophils # (auto) 0 10 ^3/uL (0-0.2); Basophils % (auto) 0.3 % (0.0-2.0); Eosinophils # (auto) 0 10 ^3/uL (0-0.8); Eosinophils % (auto) 0.4 % (0.0-7.0); Hematocrit 31.4 % (41.0-53.0); Hemoglobin 10.3 g/dL (13.5-17.5); Lymphocytes # (auto) 1.2 10 ^3/uL (0.4-5.4); Lymphocytes % (auto) 24.3 % (10.0-50.0); Mean Corpuscular Hemoglobin 29.8 pg (28.0-32.0); Mean Corpuscular Hgb Conc. 32.9 g/dL (32.0-36.0); Mean Corpuscular Volume 90.4 fL (80.0-100.0); Monocytes # (auto) 0.4 10 ^3/uL (0-1.3); Monocytes % (auto) 8.6 % (0.0-12.0); Neutrophils # (auto) 3.3 10 ^3/uL (1.6-8.6); Neutrophils % (auto) 66.4 % (37.0-80.0); Nucleated Red Blood Cells % 0.1 %; Platelet Count (auto) 222 10^3/uL (140-450); Red Blood Cells 3.47 10^6/uL (4.5-5.90); Red Cell Distribution Width 15.8 % (11.8-14.3)
[2024-12-24 06:04] LABS: Alanine Aminotransferase 16 U/L (7-40); Alkaline Phosphatase 106 U/L (46-116); Anion Gap 12 (5-15); BUN/Creatinine Ratio 16.2 (10.0-20.0); Calcium 10.3 mg/dL (8.7-10.4); Potassium 4.7 mmol/L (3.5-5.1); Sodium 139 mmol/L (136-145)
[2024-12-24 06:05] LABS: Albumin 4.3 g/dL (3.2-4.8); Aspartate Aminotransferase 13 U/L (13-40); Bilirubin, Total 0.3 mg/dL (0.2-1.0)
[2024-12-24 06:29] LABS: Carbon Dioxide 34 mmol/L (20-31); Chloride 93 mmol/L (98-107); Glucose 133 mg/dL (74-106); Total Protein 8.6 g/dL (5.7-8.2)
[2024-12-24 06:30] LABS: Blood Urea Nitrogen 89 mg/dL (9-23)
[2024-12-24 07:30] VITALS: PULSE 75; RESP 13; O2SAT 96
[2024-12-24] MEDS: SODIUM CHLORIDE 0.9% 1,000 ML IV SCH (08:39)
[2024-12-24] MEDS: cefTRIAXone 1GM/50ML D5W 50 ML IV SCH (09:27)
[2024-12-24] MEDS: AZITHROMYCIN 500MG/ 250ML 250 ML IV SCH (10:26)
--- NOTE | 2024-12-24 11:15 | DVHPN2 ---
Subjective Patient is seen and examined at bedside. No complaint. Reviewed: Care Plan, H&P, Labs, Medications, Previous Orders, Radiology Changes from previous H/P or p: No Changes Eyes: No Pain, No Vision change, No Conjunctivae inflammation, No Eyelid inflammation, No Other, No Redness ENT: No Ear pain, No Ear discharge, No Nose pain, No Nose discharge, No Nose congestion, No Mouth pain, No Mouth swelling, No Throat pain, No Throat swelling, No Other Cardiovascular: No Chest Pain, No Palpitations, No Orthopnea, No Paroxysmal Noc. Dyspnea, No Edema, No Lt Headedness, No Other Respiratory: No Cough, No Dry, No Shortness of breath, No SOB with excertion, No Wheezing, No Hemoptysis, No Pleuritic Pain, No Sputum, No Other Gastrointestinal: No Nausea, No Vomiting, No Abdominal Pain, No Diarrhea, No Constipation, No Melena, No Hematochezia, No Other Genitourinary: No Dysuria, No Frequency, No Incontinence, No Hematuria, No Retention, No Other Musculoskeletal: No other, No neck pain, No shoulder pain, No arm pain, No back pain, No hand pain, No leg pain, No foot pain Skin: No Rash, No Lesions, No Jaundice, No Bruising, No Other Objective Vitals Vital Signs Date Time Temp Pulse Resp B/P (MAP) Pulse Ox O2 Delivery O2 Flow Rate FiO2 12/24/24 11:00 79 11 124/77 (93) 96 12/24/24 08:00 97.4 97.4 12/24/24 07:30 Room Air* 0 21 Intake/Output Intake and Output 12/24/24 07:00 Intake Total 2900 ml Output Total 7100 ml Balance -4200 ml Intake Oral 500 ml IV Total 2400 ml Output Urine Total 7100 ml General Appearance: Alert, Oriented X3, Cooperative, No acute distress HEENT: Atraumatic, PERRLA, EOMI, Mucous membr. moist/pink Neck: Supple Lungs: Clear to auscultation, Normal air movement Cardiovascular: Regular rate, Normal S1, Normal S2, No murmurs, Gallops Abdomen: Normal bowel sounds, Soft, No tenderness Neuro: Cranial nerves 3-12 NL Psych/Mental Status: Mental status NL Medications Current Medications Medications Dose Ordered Sig/Isaias Route Start Time Stop Time Status Last Admin Dose Admin Ondansetron HCl 4 mg Q4HP PRN IV 12/23/24 07:00 Acetaminophen 650 mg Q6HP PRN PO 12/23/24 07:00 Nitroglycerin 0.4 mg Q5MINP PRN SL 12/23/24 07:00 Morphine Sulfate 2 mg Q30M PRN IV 12/23/24 07:00 Ceftriaxone Sodium 50 ml @ 100 mls/hr DAILY@09 IV 12/24/24 09:00 12/24/24 09:27 100 MLS/HR Azithromycin 250 ml @ 125 mls/hr DAILY IV 12/24/24 10:00 12/24/24 10:26 125 MLS/HR Sodium Chloride 1,000 ml @ 150 mls/hr Q6H40M IV 12/24/24 07:30 12/24/24 08:39 150 MLS/HR Laboratory Results Laboratory Tests 12/24/24 05:08 Chemistry Test 12/23/24 17:10 12/24/24 05:08 Calcium Level 9.7 mg/dL (8.7-10.4) 10.3 mg/dL (8.7-10.4) Albumin 4.3 g/dL (3.2-4.8) Total Protein 8.6 g/dL (5.7-8.2) H LFT Test 12/24/24 05:08 Alanine Aminotransferase (ALT) 16 U/L (7-40) Alkaline Phosphatase 106 U/L (46-116) Aspartate Amino Transferase (AST) 13 U/L (13-40) Total Bilirubin 0.3 mg/dL (0.2-1.0) Urinalysis Test 12/23/24 12:32 Urine Color Colorless (Yellow) Urine Clarity Turbid (Clear) H Urine pH 7.0 (5.0-9.0) Urine Specific [place] 1.009 (1.001-1.035) Urine Protein Negative (Negative) Urine Ketones Negative (Negative) Urine Blood 1+ /uL (Negative) H Urine Nitrite Negative (Negative) Urine Bilirubin Negative (Negative) Urine Urobilinogen Normal mg/dL (Negative) Urine Leukocyte Esterase 3+ /uL (Negative) Urine RBC 179 /hpf (0 - 3) Urine Microscopic WBC 212 /HPF (0-3) H Urine Squamous Epithelial Cells None seen /hpf (<5) Urine Bacteria Few /hpf (None Seen) H Urine Mucus Few (None Seen) Urine Creatinine 34.26 mg/dL (30.0-125.0) Urine Sodium 110 mmol/L (40-220) Urine Glucose Normal mg/dL (Normal) Urine Total Protein 10.1 mg/dL (1-14) Microbiology Microbiology Date/Time Source Procedure Growth Status 12/23/24 06:15 Blood Blood Culture - Preliminary NO GROWTH AFTER 24 HOURS OF INCUBATION. Resulted Labs and/or images reviewed: Labs reviewed by me Assessment/Plan Assessment/Plan Acute renal failure, Hyperkalemia, Urinary retention, Pneumonia, Anemia, Continuing current management. Waiting for urologist to see the patient. Continuing IV antibiotic. Continuing pain medication. This medical document was created using an electronic medical record system with [employer] computerized dictation system. Although this document has been carefully reviewed, there may still be some phonetic and typographical errors. These areas are purely typographical due to imperfections of the software programs, and do not reflect any compromise in the patient's medical care. Plan discussed with: Patient My Orders Orders - ANGELO MUNIZ MD Procedure Category Date Status Time Ct Guidance For CT 12/23/24 Resulted Needle Placeme 11:[address] 12/23/24 Resulted 11:39 Date of Service: Dec 24, 2024 Billing Provider: ANGELO MUNIZ MD Common Visit Codes: [id number] INP/OBS CARE(HIGH) ANGELO MUNIZ MD Dec 24, 2024 11:15
[2024-12-24 16:45] VITALS: BP 139/80; PULSE 71; RESP 16; TEMP 98.2; O2SAT 96
[2024-12-24 17:00] VITALS: PULSE 79; RESP 18; O2SAT 98
[2024-12-24 20:00] VITALS: PULSE 78
[2024-12-24 21:00] VITALS: BP 127/83; PULSE 78; RESP 17; TEMP 98.4; O2SAT 96
[2024-12-25] VITALS (9 sets, daily range): BP systolic 138–169; BP diastolic 81–90; PULSE 61–77; RESP 16–17; TEMP 97.6–98.4; O2SAT 96–98
[2024-12-25 07:39] LABS: Anion Gap 10 (5-15); Calcium 9.6 mg/dL (8.7-10.4); Carbon Dioxide 27 mmol/L (20-31); Chloride 102 mmol/L (98-107); Potassium 3.8 mmol/L (3.5-5.1); Sodium 139 mmol/L (136-145)
[2024-12-25 07:45] LABS: BUN/Creatinine Ratio 22.4 (10.0-20.0); Glucose 91 mg/dL (74-106)
[2024-12-25 07:46] LABS: Blood Urea Nitrogen 46 mg/dL (9-23)
--- NOTE | 2024-12-25 08:47 | DVHPN2 ---
Progress Note - Dictate Date Seen: Dec 25, 2024 Medical Necessity Reason Pt with a Central, PICC or Fol: Yes The following are medically ne: Jane Catheter vital signs Vital Sign Date Time Temp Pulse Resp B/P (MAP) Pulse Ox O2 Delivery O2 Flow Rate FiO2 12/25/24 08:05 Room Air* 0 21 12/25/24 05:00 97.8 68 17 169/86 (113) 96 97.8 Total Intake and Output 12/24/24 12/24/24 12/25/24 15:00 23:00 07:00 Intake Total 525 ml 0 ml 1250 ml Output Total 2000 ml 450 ml 1500 ml Balance -1475 ml -450 ml -250 ml medications Current Medications Medications Dose Ordered Sig/Isaias Route Start Time Stop Time Status Last Admin Dose Admin Ondansetron HCl 4 mg Q4HP PRN IV 12/23/24 07:00 Acetaminophen 650 mg Q6HP PRN PO 12/23/24 07:00 Nitroglycerin 0.4 mg Q5MINP PRN SL 12/23/24 07:00 Morphine Sulfate 2 mg Q30M PRN IV 12/23/24 07:00 Ceftriaxone Sodium 50 ml @ 100 mls/hr DAILY@09 IV 12/24/24 09:00 12/24/24 09:27 100 MLS/HR Azithromycin 250 ml @ 125 mls/hr DAILY IV 12/24/24 10:00 12/24/24 10:26 125 MLS/HR Sodium Chloride 1,000 ml @ 150 mls/hr Q6H40M IV 12/24/24 07:30 12/24/24 21:31 150 MLS/HR laboratory and microbiology Laboratory Tests 12/25/24 06:36 12/24/24 05:08 Test 12/25/24 06:36 Range/Units Serum Glucose 91 74-106 mg/dL Assessment/Plan When metabolic derangement resolved, will need cystoscopy with DVIU and Jane catheter placement. possibly next week inpatient Problems(with codes): (1) Urethral meatal stenosis (2) Urinary retention (3) Bladder outlet obstruction (4) Hyperkalemia (5) Acute renal failure Plan discussed with: Patient, Other CADE HENLEY NP Dec 25, 2024 08:47
--- NOTE | 2024-12-25 09:57 | DVHPN2 ---
Progress Note Date Seen: Dec 24, 2024 Medical Necessity Reason Pt with a Central, PICC or Fol: Yes The following are medically ne: Jane Catheter Subjective Patient reports: Feels better Objective vital signs Vital Sign Date Time Temp Pulse Resp B/P (MAP) Pulse Ox O2 Delivery O2 Flow Rate FiO2 12/25/24 09:00 97.7 66 16 165/90 (115) 98 97.7 12/25/24 08:05 Room Air* 0 21 Total Intake and Output 12/24/24 12/24/24 12/25/24 15:00 23:00 07:00 Intake Total 525 ml 0 ml 1250 ml Output Total 2000 ml 450 ml 1500 ml Balance -1475 ml -450 ml -250 ml medications Current Medications Medications Dose Ordered Sig/Isaias Route Start Time Stop Time Status Last Admin Dose Admin Ondansetron HCl 4 mg Q4HP PRN IV 12/23/24 07:00 Acetaminophen 650 mg Q6HP PRN PO 12/23/24 07:00 Nitroglycerin 0.4 mg Q5MINP PRN SL 12/23/24 07:00 Morphine Sulfate 2 mg Q30M PRN IV 12/23/24 07:00 Ceftriaxone Sodium 50 ml @ 100 mls/hr DAILY@09 IV 12/24/24 09:00 12/25/24 09:24 100 MLS/HR Azithromycin 250 ml @ 125 mls/hr DAILY IV 12/24/24 10:00 12/25/24 09:50 125 MLS/HR Sodium Chloride 1,000 ml @ 150 mls/hr Q6H40M IV 12/24/24 07:30 12/24/24 21:31 150 MLS/HR Examination: GENERAL:Normal, CVS:Normal, ABDOMEN:Normal, :Abnormal laboratory and microbiology Laboratory Tests 12/25/24 06:36 12/24/24 05:08 Test 12/25/24 06:36 Range/Units Serum Glucose 91 74-106 mg/dL Microbiology Date/Time Source Procedure Growth Status 12/23/24 06:15 Blood Blood Culture - Preliminary NO GROWTH AFTER 48 HOURS OF INCUBATION. Resulted Problem List/Assessment/Plan Problem List/Assessment/Plan Severe acute kidney injury likely in the setting of obstruction Patient has urethra obstruction Status post suprapubic catheter Metabolic acidosis Hyperkalemia Anemia knife on setting of kidney disease Strict Is&Os on suprapubic catheter IV changes to NS lasix IV Monitoring urinary output Urology on the case sepsis w/u late entry Plan discussed with: Patient JULIEN LANDON MD Dec 25, 2024 09:57
--- NOTE | 2024-12-25 09:59 | DVHPN2 ---
Progress Note Date Seen: Dec 25, 2024 Medical Necessity Reason Pt with a Central, PICC or Fol: Yes The following are medically ne: Wright Catheter Subjective Patient reports: Feels better Objective vital signs Vital Sign Date Time Temp Pulse Resp B/P (MAP) Pulse Ox O2 Delivery O2 Flow Rate FiO2 12/25/24 09:00 97.7 66 16 165/90 (115) 98 97.7 12/25/24 08:05 Room Air* 0 21 Total Intake and Output 12/24/24 12/24/24 12/25/24 15:00 23:00 07:00 Intake Total 525 ml 0 ml 1250 ml Output Total 2000 ml 450 ml 1500 ml Balance -1475 ml -450 ml -250 ml medications Current Medications Medications Dose Ordered Sig/Isaias Route Start Time Stop Time Status Last Admin Dose Admin Ondansetron HCl 4 mg Q4HP PRN IV 12/23/24 07:00 Acetaminophen 650 mg Q6HP PRN PO 12/23/24 07:00 Nitroglycerin 0.4 mg Q5MINP PRN SL 12/23/24 07:00 Morphine Sulfate 2 mg Q30M PRN IV 12/23/24 07:00 Ceftriaxone Sodium 50 ml @ 100 mls/hr DAILY@09 IV 12/24/24 09:00 12/25/24 09:24 100 MLS/HR Azithromycin 250 ml @ 125 mls/hr DAILY IV 12/24/24 10:00 12/25/24 09:50 125 MLS/HR Sodium Chloride 1,000 ml @ 150 mls/hr Q6H40M IV 12/24/24 07:30 12/24/24 21:31 150 MLS/HR Examination: GENERAL:Normal, CVS:Normal, ABDOMEN:Normal laboratory and microbiology Laboratory Tests 12/25/24 06:36 12/24/24 05:08 Test 12/25/24 06:36 Range/Units Serum Glucose 91 74-106 mg/dL Microbiology Date/Time Source Procedure Growth Status 12/23/24 06:15 Blood Blood Culture - Preliminary NO GROWTH AFTER 48 HOURS OF INCUBATION. Resulted Problem List/Assessment/Plan Problem List/Assessment/Plan Severe acute kidney injury likely in the setting of obstruction Patient has urethra obstruction s/p suprapubic cath placement Status post suprapubic catheter Metabolic acidosis resolved Hyperkalemia resolved Anemia on setting of kidney disease THAI improved continue IV Strict Is&Os on suprapubic catheter Monitoring urinary output Urology on the case plans for procedure and wright once stable replace electrolytes Plan discussed with: Patient JULIEN LANDON MD Dec 25, 2024 09:59
--- NOTE | 2024-12-25 12:07 | DVHPN2 ---
Subjective Patient is seen and examined at bedside. No complaint. Reviewed: Care Plan, H&P, Labs, Medications, Previous Orders, Radiology Changes from previous H/P or p: No Changes Eyes: No Pain, No Vision change, No Conjunctivae inflammation, No Eyelid inflammation, No Other, No Redness ENT: No Ear pain, No Ear discharge, No Nose pain, No Nose discharge, No Nose congestion, No Mouth pain, No Mouth swelling, No Throat pain, No Throat swelling, No Other Cardiovascular: No Chest Pain, No Palpitations, No Orthopnea, No Paroxysmal Noc. Dyspnea, No Edema, No Lt Headedness, No Other Respiratory: No Cough, No Dry, No Shortness of breath, No SOB with excertion, No Wheezing, No Hemoptysis, No Pleuritic Pain, No Sputum, No Other Gastrointestinal: No Nausea, No Vomiting, No Abdominal Pain, No Diarrhea, No Constipation, No Melena, No Hematochezia, No Other Genitourinary: No Dysuria, No Frequency, No Incontinence, No Hematuria, No Retention, No Other Musculoskeletal: No other, No neck pain, No shoulder pain, No arm pain, No back pain, No hand pain, No leg pain, No foot pain Skin: No Rash, No Lesions, No Jaundice, No Bruising, No Other Objective Vitals Vital Signs Date Time Temp Pulse Resp B/P (MAP) Pulse Ox O2 Delivery O2 Flow Rate FiO2 12/25/24 09:00 97.7 66 16 165/90 (115) 98 97.7 12/25/24 08:05 Room Air* 0 21 Intake/Output Intake and Output 12/25/24 07:00 Intake Total 1775 ml Output Total 3950 ml Balance -2175 ml Intake Oral 250 ml IV Total 1525 ml Output Urine Total 3950 ml General Appearance: Alert, Oriented X3, Cooperative, No acute distress HEENT: Atraumatic, PERRLA, EOMI, Mucous membr. moist/pink Neck: Supple Lungs: Clear to auscultation, Normal air movement Cardiovascular: Regular rate, Normal S1, Normal S2, No murmurs, Gallops Abdomen: Normal bowel sounds, Soft, No tenderness Neuro: Cranial nerves 3-12 NL Psych/Mental Status: Mental status NL Medications Current Medications Medications Dose Ordered Sig/Isaias Route Start Time Stop Time Status Last Admin Dose Admin Ondansetron HCl 4 mg Q4HP PRN IV 12/23/24 07:00 Acetaminophen 650 mg Q6HP PRN PO 12/23/24 07:00 Nitroglycerin 0.4 mg Q5MINP PRN SL 12/23/24 07:00 Morphine Sulfate 2 mg Q30M PRN IV 12/23/24 07:00 Ceftriaxone Sodium 50 ml @ 100 mls/hr DAILY@09 IV 12/24/24 09:00 12/25/24 09:24 100 MLS/HR Azithromycin 250 ml @ 125 mls/hr DAILY IV 12/24/24 10:00 12/25/24 09:50 125 MLS/HR Sodium Chloride 1,000 ml @ 150 mls/hr Q6H40M IV 12/24/24 07:30 12/25/24 10:49 150 MLS/HR Laboratory Results Laboratory Tests 12/24/24 05:08 12/25/24 06:36 Chemistry Test 12/25/24 06:36 Calcium Level 9.6 mg/dL (8.7-10.4) Urinalysis Test 12/23/24 12:32 Urine Color Colorless (Yellow) Urine Clarity Turbid (Clear) H Urine pH 7.0 (5.0-9.0) Urine Specific [place] 1.009 (1.001-1.035) Urine Protein Negative (Negative) Urine Ketones Negative (Negative) Urine Blood 1+ /uL (Negative) H Urine Nitrite Negative (Negative) Urine Bilirubin Negative (Negative) Urine Urobilinogen Normal mg/dL (Negative) Urine Leukocyte Esterase 3+ /uL (Negative) Urine RBC 179 /hpf (0 - 3) Urine Microscopic WBC 212 /HPF (0-3) H Urine Squamous Epithelial Cells None seen /hpf (<5) Urine Bacteria Few /hpf (None Seen) H Urine Mucus Few (None Seen) Urine Creatinine 34.26 mg/dL (30.0-125.0) Urine Sodium 110 mmol/L (40-220) Urine Glucose Normal mg/dL (Normal) Urine Total Protein 10.1 mg/dL (1-14) Microbiology Microbiology Date/Time Source Procedure Growth Status 12/23/24 06:15 Blood Blood Culture - Preliminary NO GROWTH AFTER 48 HOURS OF INCUBATION. Resulted Labs and/or images reviewed: Labs reviewed by me Assessment/Plan Assessment/Plan Acute renal failure, Hyperkalemia, Urinary retention, Pneumonia, Anemia, Continuing current management. Waiting for urologist to see the patient. Continuing IV antibiotic. Continuing pain medication. This medical document was created using an electronic medical record system with [employer] direct computerized dictation system. Although this document has been carefully reviewed, there may still be some phonetic and typographical errors. These areas are purely typographical due to imperfections of the software programs, and do not reflect any compromise in the patient's medical care. Plan discussed with: Patient My Orders Orders - ANGELO MUNIZ MD Procedure Category Date Status Time Transfer Orders XFER 12/24/24 Transmitted 15:16 Pt Request For Service PT 12/25/24 Logged 10:49 Date of Service: Dec 25, 2024 Billing Provider: ANGELO MUNIZ MD Common Visit Codes: [id number] INP/OBS CARE(HIGH) ANGELO MUNIZ MD Dec 25, 2024 12:07
[2024-12-26] VITALS (8 sets, daily range): BP systolic 136–166; BP diastolic 79–93; PULSE 64–76; RESP 16–20; TEMP 97.4–98.6; O2SAT 97–100
[2024-12-26 06:20] LABS: Basophils # (auto) 0 10 ^3/uL (0-0.2); Basophils % (auto) 0.4 % (0.0-2.0); Eosinophils # (auto) 0.2 10 ^3/uL (0-0.8); Eosinophils % (auto) 4.9 % (0.0-7.0); Hematocrit 26.5 % (41.0-53.0); Hemoglobin 8.7 g/dL (13.5-17.5); Lymphocytes # (auto) 1.9 10 ^3/uL (0.4-5.4); Lymphocytes % (auto) 45.4 % (10.0-50.0); Mean Corpuscular Hemoglobin 30.2 pg (28.0-32.0); Mean Corpuscular Hgb Conc. 32.7 g/dL (32.0-36.0); Mean Corpuscular Volume 92.3 fL (80.0-100.0); Monocytes # (auto) 0.6 10 ^3/uL (0-1.3); Neutrophils # (auto) 1.5 10 ^3/uL (1.6-8.6); Neutrophils % (auto) 35.3 % (37.0-80.0); Nucleated Red Blood Cells % 0.1 %; Platelet Count (auto) 162 10^3/uL (140-450); Red Blood Cells 2.87 10^6/uL (4.5-5.90); Red Cell Distribution Width 15.3 % (11.8-14.3); White Blood Cell 4.2 10^3/uL (4.4-10.8)
[2024-12-26 06:25] LABS: Chloride 106 mmol/L (98-107); Potassium 4.5 mmol/L (3.5-5.1); Sodium 137 mmol/L (136-145)
[2024-12-26 06:26] LABS: Anion Gap 7 (5-15); Calcium 9.7 mg/dL (8.7-10.4); Carbon Dioxide 24 mmol/L (20-31)
[2024-12-26 06:31] LABS: Glucose 79 mg/dL (74-106)
[2024-12-26 06:42] LABS: Blood Urea Nitrogen 31 mg/dL (9-23)
--- NOTE | 2024-12-26 09:14 | DVHPN2 ---
Progress Note Date Seen: Dec 26, 2024 Medical Necessity Reason Pt with a Central, PICC or Fol: Yes The following are medically ne: Wright Catheter (suprapubic) Subjective Review of Systems: NEURO:Abnormal Objective vital signs Vital Sign Date Time Temp Pulse Resp B/P (MAP) Pulse Ox O2 Delivery O2 Flow Rate FiO2 12/26/24 08:00 Room Air* 0 21 12/26/24 05:00 98.6 67 17 136/79 (98) 98 98.6 Total Intake and Output 12/25/24 12/25/24 12/26/24 15:00 23:00 07:00 Intake Total 880 ml 600 ml Output Total 1150 ml 750 ml Balance -270 ml -150 ml medications Current Medications Medications Dose Ordered Sig/Isaias Route Start Time Stop Time Status Last Admin Dose Admin Ondansetron HCl 4 mg Q4HP PRN IV 12/23/24 07:00 Acetaminophen 650 mg Q6HP PRN PO 12/23/24 07:00 Nitroglycerin 0.4 mg Q5MINP PRN SL 12/23/24 07:00 Morphine Sulfate 2 mg Q30M PRN IV 12/23/24 07:00 Ceftriaxone Sodium 50 ml @ 100 mls/hr DAILY@09 IV 12/24/24 09:00 12/26/24 08:50 100 MLS/HR Azithromycin 250 ml @ 125 mls/hr DAILY IV 12/24/24 10:00 12/25/24 09:50 125 MLS/HR Sodium Chloride 1,000 ml @ 150 mls/hr Q6H40M IV 12/24/24 07:30 12/25/24 16:54 150 MLS/HR Examination: GENERAL:Abnormal, :Abnormal laboratory and microbiology Laboratory Tests 12/26/24 05:23 Test 12/26/24 05:23 Range/Units Serum Glucose 79 74-106 mg/dL Microbiology Date/Time Source Procedure Growth Status 12/23/24 06:15 Blood Blood Culture - Preliminary NO GROWTH AFTER 72 HOURS OF INCUBATION. Resulted Problem List/Assessment/Plan Problem List/Assessment/Plan Severe acute kidney injury likely in the setting of obstruction Patient has urethra obstruction s/p suprapubic cath placement Status post suprapubic catheter Metabolic acidosis resolved Hyperkalemia resolved Anemia on setting of kidney disease THAI improved continue IV, reduce rate send iron panel, IV iron if noted elevated Strict Is&Os on suprapubic catheter Monitoring urinary output Urology on the case plans for procedure and wright once stable replace electrolytes PRN Plan discussed with: Patient My Orders My Orders Orders - JULIEN LANDON MD Procedure Category Date Status Time Iron Panel LAB 12/26/24 Verified 09:11 Ferritin LAB 12/26/24 Verified 09:11 JULIEN LANDON MD Dec 26, 2024 09:14
[2024-12-26] MEDS: SODIUM CHLORIDE 0.9% 1,000 ML IV SCH (09:35)
[2024-12-26 11:51] LABS: % Iron Saturation 30.9 % (20-55)
--- NOTE | 2024-12-26 12:38 | DVHPN2 ---
Subjective Patient is seen and examined at bedside. No complaint. Reviewed: Care Plan, H&P, Labs, Medications, Previous Orders, Radiology Changes from previous H/P or p: No Changes Eyes: No Pain, No Vision change, No Conjunctivae inflammation, No Eyelid inflammation, No Other, No Redness ENT: No Ear pain, No Ear discharge, No Nose pain, No Nose discharge, No Nose congestion, No Mouth pain, No Mouth swelling, No Throat pain, No Throat swelling, No Other Cardiovascular: No Chest Pain, No Palpitations, No Orthopnea, No Paroxysmal Noc. Dyspnea, No Edema, No Lt Headedness, No Other Respiratory: No Cough, No Dry, No Shortness of breath, No SOB with excertion, No Wheezing, No Hemoptysis, No Pleuritic Pain, No Sputum, No Other Gastrointestinal: No Nausea, No Vomiting, No Abdominal Pain, No Diarrhea, No Constipation, No Melena, No Hematochezia, No Other Genitourinary: No Dysuria, No Frequency, No Incontinence, No Hematuria, No Retention, No Other Musculoskeletal: No other, No neck pain, No shoulder pain, No arm pain, No back pain, No hand pain, No leg pain, No foot pain Skin: No Rash, No Lesions, No Jaundice, No Bruising, No Other Objective Vitals Vital Signs Date Time Temp Pulse Resp B/P (MAP) Pulse Ox O2 Delivery O2 Flow Rate FiO2 12/26/24 09:00 97.7 69 18 153/89 (110) 100 97.7 12/26/24 08:00 Room Air* 0 21 Intake/Output Intake and Output 12/26/24 07:00 Intake Total 1480 ml Output Total 1900 ml Balance -420 ml Intake Oral 1480 ml Output Urine Total 1900 ml General Appearance: Alert, Oriented X3, Cooperative, No acute distress HEENT: Atraumatic, PERRLA, EOMI, Mucous membr. moist/pink Neck: Supple Lungs: Clear to auscultation, Normal air movement Cardiovascular: Regular rate, Normal S1, Normal S2, No murmurs, Gallops Abdomen: Normal bowel sounds, Soft, No tenderness Neuro: Cranial nerves 3-12 NL Psych/Mental Status: Mental status NL Medications Current Medications Medications Dose Ordered Sig/Isaias Route Start Time Stop Time Status Last Admin Dose Admin Ondansetron HCl 4 mg Q4HP PRN IV 12/23/24 07:00 Acetaminophen 650 mg Q6HP PRN PO 12/23/24 07:00 Nitroglycerin 0.4 mg Q5MINP PRN SL 12/23/24 07:00 Morphine Sulfate 2 mg Q30M PRN IV 12/23/24 07:00 Ceftriaxone Sodium 50 ml @ 100 mls/hr DAILY@09 IV 12/24/24 09:00 12/26/24 08:50 100 MLS/HR Azithromycin 250 ml @ 125 mls/hr DAILY IV 12/24/24 10:00 12/26/24 09:35 125 MLS/HR Sodium Chloride 1,000 ml @ 75 mls/hr [id number] IV 12/26/24 09:15 12/26/24 09:35 75 MLS/HR Laboratory Results Laboratory Tests 12/26/24 05:23 Chemistry Test 12/26/24 05:23 Calcium Level 9.7 mg/dL (8.7-10.4) Urinalysis Test 12/23/24 12:32 Urine Color Colorless (Yellow) Urine Clarity Turbid (Clear) H Urine pH 7.0 (5.0-9.0) Urine Specific [place] 1.009 (1.001-1.035) Urine Protein Negative (Negative) Urine Ketones Negative (Negative) Urine Blood 1+ /uL (Negative) H Urine Nitrite Negative (Negative) Urine Bilirubin Negative (Negative) Urine Urobilinogen Normal mg/dL (Negative) Urine Leukocyte Esterase 3+ /uL (Negative) Urine RBC 179 /hpf (0 - 3) Urine Microscopic WBC 212 /HPF (0-3) H Urine Squamous Epithelial Cells None seen /hpf (<5) Urine Bacteria Few /hpf (None Seen) H Urine Mucus Few (None Seen) Urine Creatinine 34.26 mg/dL (30.0-125.0) Urine Sodium 110 mmol/L (40-220) Urine Glucose Normal mg/dL (Normal) Urine Total Protein 10.1 mg/dL (1-14) Microbiology Microbiology Date/Time Source Procedure Growth Status 12/23/24 06:15 Blood Blood Culture - Preliminary NO GROWTH AFTER 72 HOURS OF INCUBATION. Resulted Labs and/or images reviewed: Labs reviewed by me Assessment/Plan Assessment/Plan Acute renal failure, improved Hyperkalemia, Urinary retention, Pneumonia, Anemia, Continuing current management. Waiting for urologist to see the patient for the comfort of Jane and procedure. Continuing IV antibiotic. Continuing pain medication. This medical document was created using an electronic medical record system with [employer] computerized dictation system. Although this document has been carefully reviewed, there may still be some phonetic and typographical errors. These areas are purely typographical due to imperfections of the software programs, and do not reflect any compromise in the patient's medical care. Plan discussed with: Patient Date of Service: Dec 26, 2024 Billing Provider: ANGELO MUNIZ MD Common Visit Codes: [id number] INP/OBS CARE(HIGH) ANGELO MUNIZ MD Dec 26, 2024 12:38
[2024-12-27] VITALS (8 sets, daily range): BP systolic 129–161; BP diastolic 70–102; PULSE 56–85; RESP 18–20; TEMP 97.5–98.7; O2SAT 97–100
[2024-12-27 07:58] LABS: Basophils # (auto) 0 10 ^3/uL (0-0.2); Basophils % (auto) 0.8 % (0.0-2.0); Eosinophils # (auto) 0.3 10 ^3/uL (0-0.8); Eosinophils % (auto) 8.9 % (0.0-7.0); Hematocrit 25.5 % (41.0-53.0); Hemoglobin 8.3 g/dL (13.5-17.5); Lymphocytes # (auto) 1.6 10 ^3/uL (0.4-5.4); Lymphocytes % (auto) 47.4 % (10.0-50.0); Mean Corpuscular Hemoglobin 30.1 pg (28.0-32.0); Mean Corpuscular Hgb Conc. 32.8 g/dL (32.0-36.0); Mean Corpuscular Volume 91.7 fL (80.0-100.0); Monocytes # (auto) 0.4 10 ^3/uL (0-1.3); Monocytes % (auto) 11.6 % (0.0-12.0); Neutrophils # (auto) 1.1 10 ^3/uL (1.6-8.6); Neutrophils % (auto) 31.3 % (37.0-80.0); Nucleated Red Blood Cells % 0.1 %; Platelet Count (auto) 150 10^3/uL (140-450); Red Blood Cells 2.77 10^6/uL (4.5-5.90); Red Cell Distribution Width 15.7 % (11.8-14.3); White Blood Cell 3.4 10^3/uL (4.4-10.8)
[2024-12-27 08:10] LABS: Chloride 106 mmol/L (98-107); Potassium 4.8 mmol/L (3.5-5.1); Sodium 138 mmol/L (136-145)
[2024-12-27 08:11] LABS: Anion Gap 8 (5-15); Carbon Dioxide 24 mmol/L (20-31)
[2024-12-27 08:12] LABS: Calcium 9.7 mg/dL (8.7-10.4)
[2024-12-27 08:16] LABS: Glucose 79 mg/dL (74-106)
[2024-12-27 08:17] LABS: BUN/Creatinine Ratio 21.6 (10.0-20.0); Blood Urea Nitrogen 27 mg/dL (9-23)
--- NOTE | 2024-12-27 08:55 | DVHPN2 ---
Progress Note Date Seen: Dec 27, 2024 Medical Necessity Reason Pt with a Central, PICC or Fol: Yes The following are medically ne: Wright Catheter (suprapubic) Reason for wright catheter: Bladder Retention/Obstruc Subjective Patient reports: Feels better Objective vital signs Vital Sign Date Time Temp Pulse Resp B/P (MAP) Pulse Ox O2 Delivery O2 Flow Rate FiO2 12/27/24 08:10 97.9 60 20 157/86 (109) 99 97.9 12/27/24 07:43 Room Air* 0 21 Total Intake and Output 12/26/24 12/26/24 12/27/24 15:00 23:00 07:00 Intake Total 760 ml 700 ml Output Total 1000 ml 1300 ml Balance -240 ml -600 ml medications Current Medications Medications Dose Ordered Sig/Isaias Route Start Time Stop Time Status Last Admin Dose Admin Ondansetron HCl 4 mg Q4HP PRN IV 12/23/24 07:00 Acetaminophen 650 mg Q6HP PRN PO 12/23/24 07:00 Nitroglycerin 0.4 mg Q5MINP PRN SL 12/23/24 07:00 Morphine Sulfate 2 mg Q30M PRN IV 12/23/24 07:00 Ceftriaxone Sodium 50 ml @ 100 mls/hr DAILY@09 IV 12/24/24 09:00 12/27/24 08:44 100 MLS/HR Azithromycin 250 ml @ 125 mls/hr DAILY IV 12/24/24 10:00 12/26/24 09:35 125 MLS/HR Sodium Chloride 1,000 ml @ 75 mls/hr [id number] IV 12/26/24 09:15 12/27/24 01:59 75 MLS/HR Examination: GENERAL:Normal, CVS:Normal, ABDOMEN:Normal, :Abnormal laboratory and microbiology Laboratory Tests 12/27/24 05:48 Test 12/27/24 05:48 Range/Units Serum Glucose 79 74-106 mg/dL Microbiology Date/Time Source Procedure Growth Status 12/23/24 06:15 Blood Blood Culture - Preliminary NO GROWTH AFTER 72 HOURS OF INCUBATION. Resulted Problem List/Assessment/Plan Problem List/Assessment/Plan Severe acute kidney injury in the setting of obstruction Patient has urethra obstruction s/p suprapubic cath placement Status post suprapubic catheter Metabolic acidosis resolved Hyperkalemia resolved Anemia THAI has resolved now gentle IVF IV iron Strict Is&Os on suprapubic catheter Monitoring urinary output Urology on the case plans for procedure and wright conversion replace electrolytes PRN Open Nephrology standpoint acute kidney injury has resolved and electrolytes have returned to normal limits. No further recommendations at this time I will sign off the case. Reconsult if you have further questions or concerns Plan discussed with: Patient My Orders My Orders Orders - JULIEN LANDON MD Procedure Category Date Status Time Sodium Chloride 0.9% PHA 12/26/24 In Process 09:15 Dietary Evaluation Review Comments: 1) Collect HbA1c 2) Encourage optimal PO intake 3) Refer to outpatient RD for weight management 4) Follow-up with urology and nephrology 5) Continue to monitor I&O, labs, and skin integrity Expected Outcomes/Goals: 1) appetite and labs to advance 2) f/u in 3-5 days JULIEN LANDON MD Dec 27, 2024 08:55
[2024-12-27] MEDS: SODIUM CHLORIDE 0.9% 1,000 ML IV SCH (10:57)
[2024-12-27] MEDS: IRON SUCROSE COMPLEX 110 ML IV SCH (11:33)
--- NOTE | 2024-12-27 11:56 | DVHPN2 ---
Subjective Patient is seen and examined at bedside. No complaint. Reviewed: Care Plan, H&P, Labs, Medications, Previous Orders, Radiology Changes from previous H/P or p: No Changes Eyes: No Pain, No Vision change, No Conjunctivae inflammation, No Eyelid inflammation, No Other, No Redness ENT: No Ear pain, No Ear discharge, No Nose pain, No Nose discharge, No Nose congestion, No Mouth pain, No Mouth swelling, No Throat pain, No Throat swelling, No Other Cardiovascular: No Chest Pain, No Palpitations, No Orthopnea, No Paroxysmal Noc. Dyspnea, No Edema, No Lt Headedness, No Other Respiratory: No Cough, No Dry, No Shortness of breath, No SOB with excertion, No Wheezing, No Hemoptysis, No Pleuritic Pain, No Sputum, No Other Gastrointestinal: No Nausea, No Vomiting, No Abdominal Pain, No Diarrhea, No Constipation, No Melena, No Hematochezia, No Other Genitourinary: No Dysuria, No Frequency, No Incontinence, No Hematuria, No Retention, No Other Musculoskeletal: No other, No neck pain, No shoulder pain, No arm pain, No back pain, No hand pain, No leg pain, No foot pain Skin: No Rash, No Lesions, No Jaundice, No Bruising, No Other Objective Vitals Vital Signs Date Time Temp Pulse Resp B/P (MAP) Pulse Ox O2 Delivery O2 Flow Rate FiO2 12/27/24 08:10 97.9 60 20 157/86 (109) 99 97.9 12/27/24 07:43 Room Air* 0 21 Intake/Output Intake and Output 12/27/24 07:00 Intake Total 1460 ml Output Total 2300 ml Balance -840 ml Intake Oral 1460 ml Output Urine Total 2300 ml General Appearance: Alert, Oriented X3, Cooperative, No acute distress HEENT: Atraumatic, PERRLA, EOMI, Mucous membr. moist/pink Neck: Supple Lungs: Clear to auscultation, Normal air movement Cardiovascular: Regular rate, Normal S1, Normal S2, No murmurs, Gallops Abdomen: Normal bowel sounds, Soft, No tenderness Neuro: Cranial nerves 3-12 NL Psych/Mental Status: Mental status NL Medications Current Medications Medications Dose Ordered Sig/Isaias Route Start Time Stop Time Status Last Admin Dose Admin Ondansetron HCl 4 mg Q4HP PRN IV 12/23/24 07:00 Acetaminophen 650 mg Q6HP PRN PO 12/23/24 07:00 Nitroglycerin 0.4 mg Q5MINP PRN SL 12/23/24 07:00 Morphine Sulfate 2 mg Q30M PRN IV 12/23/24 07:00 Ceftriaxone Sodium 50 ml @ 100 mls/hr DAILY@09 IV 12/24/24 09:00 12/27/24 08:44 100 MLS/HR Azithromycin 250 ml @ 125 mls/hr DAILY IV 12/24/24 10:00 12/27/24 09:41 125 MLS/HR Iron Sucrose 110 ml @ 110 mls/hr DAILY@1200 IV 12/27/24 12:00 12/31/24 12:59 12/27/24 11:33 110 MLS/HR Sodium Chloride 1,000 ml @ 60 mls/hr [id number] IV 12/27/24 09:00 12/27/24 10:57 60 MLS/HR Laboratory Results Laboratory Tests 12/27/24 05:48 Chemistry Test 12/27/24 05:48 Calcium Level 9.7 mg/dL (8.7-10.4) Urinalysis Test 12/23/24 12:32 Urine Color Colorless (Yellow) Urine Clarity Turbid (Clear) H Urine pH 7.0 (5.0-9.0) Urine Specific [place] 1.009 (1.001-1.035) Urine Protein Negative (Negative) Urine Ketones Negative (Negative) Urine Blood 1+ /uL (Negative) H Urine Nitrite Negative (Negative) Urine Bilirubin Negative (Negative) Urine Urobilinogen Normal mg/dL (Negative) Urine Leukocyte Esterase 3+ /uL (Negative) Urine RBC 179 /hpf (0 - 3) Urine Microscopic WBC 212 /HPF (0-3) H Urine Squamous Epithelial Cells None seen /hpf (<5) Urine Bacteria Few /hpf (None Seen) H Urine Mucus Few (None Seen) Urine Creatinine 34.26 mg/dL (30.0-125.0) Urine Sodium 110 mmol/L (40-220) Urine Glucose Normal mg/dL (Normal) Urine Total Protein 10.1 mg/dL (1-14) Microbiology Microbiology Date/Time Source Procedure Growth Status 12/23/24 06:15 Blood Blood Culture - Preliminary NO GROWTH AFTER 72 HOURS OF INCUBATION. Resulted Labs and/or images reviewed: Labs reviewed by me Assessment/Plan Assessment/Plan Acute renal failure, Hyperkalemia, Urinary retention, Pneumonia, Anemia, Continuing current management. Continuing IV antibiotic. Continuing pain medication. Urology on the case plans for procedure and wright conversion This medical document was created using an electronic medical record system with [employer] direct computerized dictation system. Although this document has been carefully reviewed, there may still be some phonetic and typographical errors. These areas are purely typographical due to imperfections of the software programs, and do not reflect any compromise in the patient's medical care. Plan discussed with: Patient Date of Service: Dec 27, 2024 Billing Provider: ANGELO MUNIZ MD Common Visit Codes: [id number] INP/OBS CARE(HIGH) ANGELO MUNIZ MD Dec 27, 2024 11:56
[2024-12-28] VITALS (8 sets, daily range): BP systolic 114–152; BP diastolic 68–92; PULSE 66–95; RESP 16–20; TEMP 97.6–98.3; O2SAT 95–100
[2024-12-28 08:30] LABS: Basophils # (auto) 0 10 ^3/uL (0-0.2); Basophils % (auto) 0.4 % (0.0-2.0); Eosinophils # (auto) 0.2 10 ^3/uL (0-0.8); Eosinophils % (auto) 2.8 % (0.0-7.0); Hemoglobin 8.5 g/dL (13.5-17.5); Lymphocytes # (auto) 1.5 10 ^3/uL (0.4-5.4); Lymphocytes % (auto) 22.1 % (10.0-50.0); Mean Corpuscular Hemoglobin 30.2 pg (28.0-32.0); Mean Corpuscular Hgb Conc. 32.7 g/dL (32.0-36.0); Mean Corpuscular Volume 92.4 fL (80.0-100.0); Monocytes # (auto) 0.8 10 ^3/uL (0-1.3); Monocytes % (auto) 11.4 % (0.0-12.0); Neutrophils # (auto) 4.2 10 ^3/uL (1.6-8.6); Neutrophils % (auto) 63.3 % (37.0-80.0); Platelet Count (auto) 158 10^3/uL (140-450); Red Blood Cells 2.81 10^6/uL (4.5-5.90); Red Cell Distribution Width 15.4 % (11.8-14.3); White Blood Cell 6.7 10^3/uL (4.4-10.8)
[2024-12-28 08:35] LABS: Chloride 106 mmol/L (98-107); Potassium 4.5 mmol/L (3.5-5.1); Sodium 139 mmol/L (136-145)
[2024-12-28 08:36] LABS: Carbon Dioxide 24 mmol/L (20-31)
[2024-12-28 08:37] LABS: Calcium 9.4 mg/dL (8.7-10.4)
[2024-12-28 08:39] LABS: Anion Gap 9 (5-15)
[2024-12-28 08:41] LABS: Glucose 80 mg/dL (74-106)
[2024-12-28 08:42] LABS: BUN/Creatinine Ratio 18.2 (10.0-20.0); Blood Urea Nitrogen 20 mg/dL (9-23)
--- NOTE | 2024-12-28 11:12 | DVHPN2 ---
Subjective Patient is seen and examined at bedside. No complaint. Reviewed: Care Plan, H&P, Labs, Medications, Previous Orders, Radiology Changes from previous H/P or p: No Changes Eyes: No Pain, No Vision change, No Conjunctivae inflammation, No Eyelid inflammation, No Other, No Redness ENT: No Ear pain, No Ear discharge, No Nose pain, No Nose discharge, No Nose congestion, No Mouth pain, No Mouth swelling, No Throat pain, No Throat swelling, No Other Cardiovascular: No Chest Pain, No Palpitations, No Orthopnea, No Paroxysmal Noc. Dyspnea, No Edema, No Lt Headedness, No Other Respiratory: No Cough, No Dry, No Shortness of breath, No SOB with excertion, No Wheezing, No Hemoptysis, No Pleuritic Pain, No Sputum, No Other Gastrointestinal: No Nausea, No Vomiting, No Abdominal Pain, No Diarrhea, No Constipation, No Melena, No Hematochezia, No Other Genitourinary: No Dysuria, No Frequency, No Incontinence, No Hematuria, No Retention, No Other Musculoskeletal: No other, No neck pain, No shoulder pain, No arm pain, No back pain, No hand pain, No leg pain, No foot pain Skin: No Rash, No Lesions, No Jaundice, No Bruising, No Other Objective Vitals Vital Signs Date Time Temp Pulse Resp B/P (MAP) Pulse Ox O2 Delivery O2 Flow Rate FiO2 12/28/24 09:00 98.0 70 18 146/92 (110) 98 98.0 12/28/24 08:00 Room Air* 0 21 Intake/Output Intake and Output 12/28/24 07:00 Intake Total 2680 ml Output Total 3251 ml Balance -571 ml Intake Oral 2380 ml IV Total 300 ml Output Urine Total 3250 ml Stool Total 1 ml General Appearance: Alert, Oriented X3, Cooperative, No acute distress HEENT: Atraumatic, PERRLA, EOMI, Mucous membr. moist/pink Neck: Supple Lungs: Clear to auscultation, Normal air movement Cardiovascular: Regular rate, Normal S1, Normal S2, No murmurs, Gallops Abdomen: Normal bowel sounds, Soft, No tenderness Neuro: Cranial nerves 3-12 NL Psych/Mental Status: Mental status NL Medications Current Medications Medications Dose Ordered Sig/Isaias Route Start Time Stop Time Status Last Admin Dose Admin Ondansetron HCl 4 mg Q4HP PRN IV 12/23/24 07:00 Acetaminophen 650 mg Q6HP PRN PO 12/23/24 07:00 Nitroglycerin 0.4 mg Q5MINP PRN SL 12/23/24 07:00 Morphine Sulfate 2 mg Q30M PRN IV 12/23/24 07:00 Ceftriaxone Sodium 50 ml @ 100 mls/hr DAILY@09 IV 12/24/24 09:00 12/28/24 09:39 100 MLS/HR Azithromycin 250 ml @ 125 mls/hr DAILY IV 12/24/24 10:00 12/28/24 09:39 125 MLS/HR Iron Sucrose 110 ml @ 110 mls/hr DAILY@1200 IV 12/27/24 12:00 12/31/24 12:59 12/27/24 11:33 110 MLS/HR Sodium Chloride 1,000 ml @ 60 mls/hr [id number] IV 12/27/24 09:00 12/28/24 01:30 60 MLS/HR Laboratory Results Laboratory Tests 12/28/24 06:14 Chemistry Test 12/28/24 06:14 Calcium Level 9.4 mg/dL (8.7-10.4) Urinalysis Test 12/23/24 12:32 Urine Color Colorless (Yellow) Urine Clarity Turbid (Clear) H Urine pH 7.0 (5.0-9.0) Urine Specific [place] 1.009 (1.001-1.035) Urine Protein Negative (Negative) Urine Ketones Negative (Negative) Urine Blood 1+ /uL (Negative) H Urine Nitrite Negative (Negative) Urine Bilirubin Negative (Negative) Urine Urobilinogen Normal mg/dL (Negative) Urine Leukocyte Esterase 3+ /uL (Negative) Urine RBC 179 /hpf (0 - 3) Urine Microscopic WBC 212 /HPF (0-3) H Urine Squamous Epithelial Cells None seen /hpf (<5) Urine Bacteria Few /hpf (None Seen) H Urine Mucus Few (None Seen) Urine Creatinine 34.26 mg/dL (30.0-125.0) Urine Sodium 110 mmol/L (40-220) Urine Glucose Normal mg/dL (Normal) Urine Total Protein 10.1 mg/dL (1-14) Microbiology Microbiology Date/Time Source Procedure Growth Status 12/23/24 06:15 Blood Blood Culture - Final NO GROWTH AFTER 5 DAYS OF INCUBATION. Complete Labs and/or images reviewed: Labs reviewed by me Assessment/Plan Assessment/Plan Acute renal failure, Hyperkalemia, Urinary retention, Pneumonia, Anemia, Continuing current management. Continuing IV antibiotic. Continuing pain medication. Waiting for Urology on the case plans for procedure and wright conversion This medical document was created using an electronic medical record system with [employer] direct computerized dictation system. Although this document has been carefully reviewed, there may still be some phonetic and typographical errors. These areas are purely typographical due to imperfections of the software programs, and do not reflect any compromise in the patient's medical care. Plan discussed with: Patient Date of Service: Dec 28, 2024 Billing Provider: ANGELO MUNIZ MD Common Visit Codes: [id number] INP/OBS CARE(HIGH) ANGELO MUNIZ MD Dec 28, 2024 11:12
[2024-12-29] VITALS (9 sets, daily range): BP systolic 123–156; BP diastolic 69–88; PULSE 65–93; RESP 11–20; TEMP 97.5–98.2; O2SAT 95–100
[2024-12-29 07:29] LABS: Basophils # (auto) 0 10 ^3/uL (0-0.2); Basophils % (auto) 0.6 % (0.0-2.0); Eosinophils # (auto) 0.2 10 ^3/uL (0-0.8); Eosinophils % (auto) 3.9 % (0.0-7.0); Hematocrit 26.2 % (41.0-53.0); Hemoglobin 8.5 g/dL (13.5-17.5); Lymphocytes # (auto) 1.4 10 ^3/uL (0.4-5.4); Mean Corpuscular Hemoglobin 29.8 pg (28.0-32.0); Mean Corpuscular Hgb Conc. 32.3 g/dL (32.0-36.0); Mean Corpuscular Volume 92.5 fL (80.0-100.0); Monocytes # (auto) 0.6 10 ^3/uL (0-1.3); Monocytes % (auto) 14.8 % (0.0-12.0); Neutrophils # (auto) 1.8 10 ^3/uL (1.6-8.6); Neutrophils % (auto) 44.7 % (37.0-80.0); Platelet Count (auto) 154 10^3/uL (140-450); Red Blood Cells 2.84 10^6/uL (4.5-5.90); Red Cell Distribution Width 15.8 % (11.8-14.3)
[2024-12-29 07:35] LABS: Chloride 104 mmol/L (98-107); Potassium 4.3 mmol/L (3.5-5.1)
[2024-12-29 07:36] LABS: Sodium 137 mmol/L (136-145)
[2024-12-29 07:37] LABS: Anion Gap 7 (5-15); Calcium 9.9 mg/dL (8.7-10.4); Carbon Dioxide 26 mmol/L (20-31)
[2024-12-29 07:42] LABS: BUN/Creatinine Ratio 15.3 (10.0-20.0); Blood Urea Nitrogen 18 mg/dL (9-23); Glucose 86 mg/dL (74-106)
[2024-12-29] MEDS ORDERED: DexAMETHasone SOD PHOS 10MG/1ML VIAL INJ ONE (10:28)
[2024-12-29] MEDS ORDERED: PROPOFOL 10 MG/ML 20 ML IV ONE ×3 (10:28→17:58)
[2024-12-29] MEDS ORDERED: GLYCOPYRROLATE 0.2 MG/ML 1ML VIAL ONE (10:28)
[2024-12-29] MEDS ORDERED: ONDANSETRON HCL 4 MG/2 ML VIAL ONE (10:28)
[2024-12-29] MEDS ORDERED: LIDOCAINE 1% INJ PF 5ML AMP ONE ×2 (10:28→17:58)
[2024-12-29] MEDS ORDERED: KETAMINE 50mg/ML 1ml syringe ONE (10:28)
[2024-12-29] MEDS ORDERED: KETOROLAC TROMETH 30 MG/ML 1ML VIAL ONE (10:28)
[2024-12-29] MEDS ORDERED: ceFAZolin 1GM VL ONE (10:38)
[2024-12-29] MEDS ORDERED: MIDAZOLAM HCL 2MG/2ML 2ml VIAL (1mg/ml) ONE (17:44)
[2024-12-29] MEDS ORDERED: fentaNYL CITRATE 100 MCG/2 ML VL ONE (17:44)
[2024-12-29] MEDS ORDERED: SODIUM CHLORIDE LOCK 10 ML ONE (17:58)
--- NOTE | 2024-12-29 18:54 | DVHNC2 ---
Procedure - OPERATIVE REPORT Pre-op. Diagnosis: Phimosis, severe Urinary retention/BPH Unable to catheterize urethra Urethral stricture disease Suprapubic catheter, in situ Azotemia Bilateral hydronephrosis Post-op. Diagnosis: Same as pre-op diagnosis Operation: Circumcision, Dorsal slit Cystoscopy with DVIU Jane catheter placement Removal of SPT Anesthesia: General Indications: Patient is in urinary retention and he cannot be catheterized due to severe phimosis. His creatinine level was elevated with bilateral hydronephrosis reported on CT Scan and required temporary SPT for urinary diversion. Creatinine normalized with SPT in situ. The indications, risks, complications, alternatives and benefits for Cystoscopy with urethrotomy, dorsal slit circumcision,cystoscopy and Jane catheter placeme nt are discussed with patient. All questions were encouraged and answered. Specific risks/complications including but not limited to infection, wound dehiscence, penile deformity/angulation and altered sensation on skin were discussed. He is aware of alternative management of hygiene and conservative management. He is competent and understands the discussion. The consent was obtained. Details of Procedure: Patient was brought to the operating room and placed in supine position. After induction of anesthesia, his genitalia was prepped and draped in standard surgical fashion. Tip of the prepuce was opened with hemostat and vertical dorsal slit incision was made to tarango sulcus proximally. Hemostasis was assured and the lateral edges were re-approximated by using 3-0 Chromic Suture in interrupted fashion. Cystoscopy was performed. Urethrotome sheath with cold knife was used to incise the proximal urethral stricture at 12 O'clock. Next, 20 F Coude tip Jane catheter was then inserted and secured. The SPT was removed. Sterile dressing was then applied and patient was then awakened and moved to the recovery room in satisfactory fashion. Specimens: None Complications: None TYRON ESTEVES MD Dec 29, 2024 18:54
[2024-12-29] MEDS: HYDROmorphone HCL 2 MG/ML VL/or syr IV PRN (19:24)
[2024-12-29] MEDS: hydrALAZINE HCL 20 MG/ML VL IV PRN (19:24)
[2024-12-29] MEDS ORDERED: ePHEDrine SULFATE 50 MG/ML AMP IV PRN (19:30)
[2024-12-29] MEDS ORDERED: MIDAZOLAM HCL 2MG/2ML 2ml VIAL (1mg/ml) IV PRN (19:30)
[2024-12-29] MEDS ORDERED: MORPHINE SULFATE 4 MG/ML SYR/VIAL IV PRN (19:30)
--- NOTE | 2024-12-29 22:36 | DVHPN2 ---
Subjective Patient is seen and examined at bedside. No complaint. Reviewed: Care Plan, H&P, Labs, Medications, Previous Orders, Radiology Changes from previous H/P or p: No Changes Eyes: No Pain, No Vision change, No Conjunctivae inflammation, No Eyelid inflammation, No Other, No Redness ENT: No Ear pain, No Ear discharge, No Nose pain, No Nose discharge, No Nose congestion, No Mouth pain, No Mouth swelling, No Throat pain, No Throat swelling, No Other Cardiovascular: No Chest Pain, No Palpitations, No Orthopnea, No Paroxysmal Noc. Dyspnea, No Edema, No Lt Headedness, No Other Respiratory: No Cough, No Dry, No Shortness of breath, No SOB with excertion, No Wheezing, No Hemoptysis, No Pleuritic Pain, No Sputum, No Other Gastrointestinal: No Nausea, No Vomiting, No Abdominal Pain, No Diarrhea, No Constipation, No Melena, No Hematochezia, No Other Genitourinary: No Dysuria, No Frequency, No Incontinence, No Hematuria, No Retention, No Other Musculoskeletal: No other, No neck pain, No shoulder pain, No arm pain, No back pain, No hand pain, No leg pain, No foot pain Skin: No Rash, No Lesions, No Jaundice, No Bruising, No Other Objective Vitals Vital Signs Date Time Temp Pulse Resp B/P (MAP) Pulse Ox O2 Delivery O2 Flow Rate FiO2 12/29/24 21:00 97.5 93 18 156/88 (110) 99 97.5 12/29/24 19:15 Room Air 12/29/24 18:57 10.0 100 Intake/Output Intake and Output 12/29/24 07:00 Intake Total 890 ml Output Total 2300 ml Balance -1410 ml Intake Oral 0 ml IV Total 890 ml Output Urine Total 2300 ml General Appearance: Alert, Oriented X3, Cooperative, No acute distress HEENT: Atraumatic, PERRLA, EOMI, Mucous membr. moist/pink Neck: Supple Lungs: Clear to auscultation, Normal air movement Cardiovascular: Regular rate, Normal S1, Normal S2, No murmurs, Gallops Abdomen: Normal bowel sounds, Soft, No tenderness Neuro: Cranial nerves 3-12 NL Psych/Mental Status: Mental status NL Medications Current Medications Medications Dose Ordered Sig/Isaias Route Start Time Stop Time Status Last Admin Dose Admin Ondansetron HCl 4 mg Q4HP PRN IV 12/23/24 07:00 Acetaminophen 650 mg Q6HP PRN PO 12/23/24 07:00 Nitroglycerin 0.4 mg Q5MINP PRN SL 12/23/24 07:00 Morphine Sulfate 2 mg Q30M PRN IV 12/23/24 07:00 Ceftriaxone Sodium 50 ml @ 100 mls/hr DAILY@09 IV 12/24/24 09:00 12/29/24 11:18 100 MLS/HR Azithromycin 250 ml @ 125 mls/hr DAILY IV 12/24/24 10:00 12/29/24 11:20 125 MLS/HR Iron Sucrose 110 ml @ 110 mls/hr DAILY@1200 IV 12/27/24 12:00 12/31/24 12:59 12/29/24 13:40 110 MLS/HR Sodium Chloride 1,000 ml @ 60 mls/hr [id number] IV 12/27/24 09:00 12/29/24 11:21 60 MLS/HR Laboratory Results Laboratory Tests 12/29/24 06:51 Chemistry Test 12/29/24 06:51 Calcium Level 9.9 mg/dL (8.7-10.4) Urinalysis Test 12/23/24 12:32 Urine Color Colorless (Yellow) Urine Clarity Turbid (Clear) H Urine pH 7.0 (5.0-9.0) Urine Specific [place] 1.009 (1.001-1.035) Urine Protein Negative (Negative) Urine Ketones Negative (Negative) Urine Blood 1+ /uL (Negative) H Urine Nitrite Negative (Negative) Urine Bilirubin Negative (Negative) Urine Urobilinogen Normal mg/dL (Negative) Urine Leukocyte Esterase 3+ /uL (Negative) Urine RBC 179 /hpf (0 - 3) Urine Microscopic WBC 212 /HPF (0-3) H Urine Squamous Epithelial Cells None seen /hpf (<5) Urine Bacteria Few /hpf (None Seen) H Urine Mucus Few (None Seen) Urine Creatinine 34.26 mg/dL (30.0-125.0) Urine Sodium 110 mmol/L (40-220) Urine Glucose Normal mg/dL (Normal) Urine Total Protein 10.1 mg/dL (1-14) Microbiology Microbiology Date/Time Source Procedure Growth Status 12/23/24 06:15 Blood Blood Culture - Final NO GROWTH AFTER 5 DAYS OF INCUBATION. Complete Labs and/or images reviewed: Labs reviewed by me Assessment/Plan Assessment/Plan Acute renal failure, Hyperkalemia, Urinary retention, Pneumonia, Anemia, Continuing current management. Continuing IV antibiotic. Continuing pain medication. Urology on the case plans for procedure and wright conversion Will follow up with electrolyte. This medical document was created using an electronic medical record system with [employer] direct computerized dictation system. Although this document has been carefully reviewed, there may still be some phonetic and typographical errors. These areas are purely typographical due to imperfections of the software programs, and do not reflect any compromise in the patient's medical care. Plan discussed with: Patient Date of Service: Dec 29, 2024 Billing Provider: ANGELO MUNIZ MD Common Visit Codes: [id number] INP/OBS CARE(HIGH) ANGELO MUNIZ MD Dec 29, 2024 22:36
[2024-12-30] VITALS (8 sets, daily range): BP systolic 114–139; BP diastolic 59–86; PULSE 72–91; RESP 18–20; TEMP 97.7–98.6; O2SAT 92–98
[2024-12-30 07:29] LABS: Anion Gap 7 (5-15); Calcium 9.5 mg/dL (8.7-10.4); Carbon Dioxide 25 mmol/L (20-31); Potassium 4.1 mmol/L (3.5-5.1); Sodium 139 mmol/L (136-145)
[2024-12-30 07:34] LABS: Basophils # (auto) 0 10 ^3/uL (0-0.2); Eosinophils # (auto) 0.1 10 ^3/uL (0-0.8); Hematocrit 24.1 % (41.0-53.0); Mean Corpuscular Hemoglobin 30.4 pg (28.0-32.0); Nucleated Red Blood Cells % 0.1 %
[2024-12-30 07:35] LABS: Blood Urea Nitrogen 18 mg/dL (9-23)
[2024-12-30 07:37] LABS: Basophils % (auto) 0.3 % (0.0-2.0); Chloride 107 mmol/L (98-107); Eosinophils % (auto) 1.6 % (0.0-7.0); Glucose 71 mg/dL (74-106); Lymphocytes # (auto) 1.3 10 ^3/uL (0.4-5.4); Lymphocytes % (auto) 20.2 % (10.0-50.0); Mean Corpuscular Hgb Conc. 33.1 g/dL (32.0-36.0); Mean Corpuscular Volume 91.9 fL (80.0-100.0); Monocytes # (auto) 0.9 10 ^3/uL (0-1.3); Monocytes % (auto) 13.7 % (0.0-12.0); Neutrophils % (auto) 64.2 % (37.0-80.0); Platelet Count (auto) 145 10^3/uL (140-450); Red Blood Cells 2.62 10^6/uL (4.5-5.90); Red Cell Distribution Width 15.6 % (11.8-14.3); White Blood Cell 6.2 10^3/uL (4.4-10.8)
--- NOTE | 2024-12-30 11:41 | DVHPN2 ---
Subjective Patient is seen and examined at bedside. No complaint. Reviewed: Care Plan, H&P, Labs, Medications, Previous Orders, Radiology Changes from previous H/P or p: No Changes Eyes: No Pain, No Vision change, No Conjunctivae inflammation, No Eyelid inflammation, No Other, No Redness ENT: No Ear pain, No Ear discharge, No Nose pain, No Nose discharge, No Nose congestion, No Mouth pain, No Mouth swelling, No Throat pain, No Throat swelling, No Other Cardiovascular: No Chest Pain, No Palpitations, No Orthopnea, No Paroxysmal Noc. Dyspnea, No Edema, No Lt Headedness, No Other Respiratory: No Cough, No Dry, No Shortness of breath, No SOB with excertion, No Wheezing, No Hemoptysis, No Pleuritic Pain, No Sputum, No Other Gastrointestinal: No Nausea, No Vomiting, No Abdominal Pain, No Diarrhea, No Constipation, No Melena, No Hematochezia, No Other Genitourinary: No Dysuria, No Frequency, No Incontinence, No Hematuria, No Retention, No Other Musculoskeletal: No other, No neck pain, No shoulder pain, No arm pain, No back pain, No hand pain, No leg pain, No foot pain Skin: No Rash, No Lesions, No Jaundice, No Bruising, No Other Objective Vitals Vital Signs Date Time Temp Pulse Resp B/P (MAP) Pulse Ox O2 Delivery O2 Flow Rate FiO2 12/30/24 08:00 Room Air* 0 21 12/30/24 05:00 88 18 120/79 (93) 97 12/30/24 01:00 97.7 97.7 Intake/Output Intake and Output 12/30/24 07:00 Intake Total 1230 ml Output Total 2050 ml Balance -820 ml Intake Oral 590 ml IV Total 640 ml Output Urine Total 2050 ml # Bowel Movements 1 General Appearance: Alert, Oriented X3, Cooperative, No acute distress HEENT: Atraumatic, PERRLA, EOMI, Mucous membr. moist/pink Neck: Supple Lungs: Clear to auscultation, Normal air movement Cardiovascular: Regular rate, Normal S1, Normal S2, No murmurs, Gallops Abdomen: Normal bowel sounds, Soft, No tenderness Neuro: Cranial nerves 3-12 NL Psych/Mental Status: Mental status NL Medications Current Medications Medications Dose Ordered Sig/Isaias Route Start Time Stop Time Status Last Admin Dose Admin Ondansetron HCl 4 mg Q4HP PRN IV 12/23/24 07:00 Acetaminophen 650 mg Q6HP PRN PO 12/23/24 07:00 Nitroglycerin 0.4 mg Q5MINP PRN SL 12/23/24 07:00 Morphine Sulfate 2 mg Q30M PRN IV 12/23/24 07:00 Ceftriaxone Sodium 50 ml @ 100 mls/hr DAILY@09 IV 12/24/24 09:00 12/30/24 08:46 100 MLS/HR Azithromycin 250 ml @ 125 mls/hr DAILY IV 12/24/24 10:00 12/30/24 09:28 125 MLS/HR Iron Sucrose 110 ml @ 110 mls/hr DAILY@1200 IV 12/27/24 12:00 12/31/24 12:59 12/30/24 11:32 110 MLS/HR Sodium Chloride 1,000 ml @ 60 mls/hr [id number] IV 12/27/24 09:00 12/30/24 04:04 60 MLS/HR Laboratory Results Laboratory Tests 12/30/24 06:39 Chemistry Test 12/30/24 06:39 Calcium Level 9.5 mg/dL (8.7-10.4) Urinalysis Test 12/23/24 12:32 Urine Color Colorless (Yellow) Urine Clarity Turbid (Clear) H Urine pH 7.0 (5.0-9.0) Urine Specific [place] 1.009 (1.001-1.035) Urine Protein Negative (Negative) Urine Ketones Negative (Negative) Urine Blood 1+ /uL (Negative) H Urine Nitrite Negative (Negative) Urine Bilirubin Negative (Negative) Urine Urobilinogen Normal mg/dL (Negative) Urine Leukocyte Esterase 3+ /uL (Negative) Urine RBC 179 /hpf (0 - 3) Urine Microscopic WBC 212 /HPF (0-3) H Urine Squamous Epithelial Cells None seen /hpf (<5) Urine Bacteria Few /hpf (None Seen) H Urine Mucus Few (None Seen) Urine Creatinine 34.26 mg/dL (30.0-125.0) Urine Sodium 110 mmol/L (40-220) Urine Glucose Normal mg/dL (Normal) Urine Total Protein 10.1 mg/dL (1-14) Microbiology Microbiology Date/Time Source Procedure Growth Status 12/23/24 06:15 Blood Blood Culture - Final NO GROWTH AFTER 5 DAYS OF INCUBATION. Complete Labs and/or images reviewed: Labs reviewed by me Assessment/Plan Assessment/Plan Acute renal failure, Hyperkalemia, Urinary retention, Pneumonia, Anemia, Continuing current management. Continuing IV antibiotic. Continuing pain medication. Urology on the case plans for procedure and wright conversion Hopefully soon Will follow up with electrolyte. This medical document was created using an electronic medical record system with [employer] direct computerized dictation system. Although this document has been carefully reviewed, there may still be some phonetic and typographical errors. These areas are purely typographical due to imperfections of the software programs, and do not reflect any compromise in the patient's medical care. Plan discussed with: Patient Date of Service: Dec 30, 2024 Billing Provider: ANGELO MUNIZ MD Common Visit Codes: [id number] INP/OBS CARE(HIGH) ANGELO MUNIZ MD Dec 30, 2024 11:41
[2024-12-30] MEDS: BACITRACIN TOP OINT 1 UD PKG TOP ONE (15:34)
[2024-12-30] MEDS: CIPROFLOXACIN 400MG/200ML 200 ML IV ONE (15:34)
[2024-12-30] MEDS: ONDANSETRON HCL 4 MG/2 ML VIAL IV ONE (15:34)
[2024-12-30] MEDS: hydrALAZINE HCL 20 MG/ML VL ONE (15:34)
[2024-12-31 01:00] VITALS: BP 127/68; PULSE 73; RESP 18; TEMP 97.9; O2SAT 97
[2024-12-31 05:00] VITALS: BP 119/72; PULSE 71; RESP 18; TEMP 97.6; O2SAT 97
[2024-12-31 08:00] VITALS: PULSE 63
[2024-12-31 09:00] VITALS: BP 144/85; PULSE 64; RESP 16; TEMP 97.7; O2SAT 99
--- NOTE | 2024-12-31 09:36 | DVHDS2 ---
Discharge Summary Date of Admission Dec 23, 2024 at 06:54 Labs/Diagnostic Data: Laboratory Results Test 12/30/24 06:39 12/26/24 05:23 12/24/24 11:05 12/24/24 05:08 White Blood Count 6.2 10^3/uL (4.4-10.8) Red Blood Count 2.62 10^6/uL (4.5-5.90) Hemoglobin 8.0 g/dL (13.5-17.5) Hematocrit 24.1 % (41.0-53.0) Mean Corpuscular Volume 91.9 fL (80.0-100.0) Mean Corpuscular Hemoglobin 30.4 pg (28.0-32.0) Mean Corpuscular Hemoglobin Concent 33.1 g/dL (32.0-36.0) Red Cell Distribution Width 15.6 % (11.8-14.3) Platelet Count 145 10^3/uL (140-450) Mean Platelet Volume 8.1 fL (6.9-10.8) Neutrophils (%) (Auto) 64.2 % (37.0-80.0) Lymphocytes (%) (Auto) 20.2 % (10.0-50.0) Monocytes (%) (Auto) 13.7 % (0.0-12.0) Eosinophils (%) (Auto) 1.6 % (0.0-7.0) Basophils (%) (Auto) 0.3 % (0.0-2.0) Neutrophils # (Auto) 4.0 10 ^3/uL (1.6-8.6) Lymphocytes # (Auto) 1.3 10 ^3/uL (0.4-5.4) Monocytes # (Auto) 0.9 10 ^3/uL (0-1.3) Eosinophils # (Auto) 0.1 10 ^3/uL (0-0.8) Basophils # (Auto) 0 10 ^3/uL (0-0.2) Nucleated Red Blood Cells 0.1 % Sodium Level 139 mmol/L (136-145) Potassium Level 4.1 mmol/L (3.5-5.1) Chloride Level 107 mmol/L (98-107) Carbon Dioxide Level 25 mmol/L (20-31) Anion Gap 7 (5-15) Blood Urea Nitrogen 18 mg/dL (9-23) Creatinine 1.06 mg/dL (0.700-1.30) Glomerular Filtration Rate Calc 73 mL/min (>90) BUN/Creatinine Ratio 17.0 (10.0-20.0) Serum Glucose 71 mg/dL (74-106) Calcium Level 9.5 mg/dL (8.7-10.4) Iron Level 71 ug/dL (65-175) Total Iron Binding Capacity 230 ug/dL (250-425) Percent Iron Saturation 30.9 % (20-55) Ferritin 297.0 ng/mL (22-322) POC Glucose 142 mg/dl (70-106) Total Bilirubin 0.3 mg/dL (0.2-1.0) Aspartate Amino Transferase (AST) 13 U/L (13-40) Alanine Aminotransferase (ALT) 16 U/L (7-40) Alkaline Phosphatase 106 U/L (46-116) Total Protein 8.6 g/dL (5.7-8.2) Albumin 4.3 g/dL (3.2-4.8) Test 12/23/24 12:32 12/23/24 09:36 12/23/24 06:15 12/23/24 04:55 Urine Color Colorless (Yellow) Urine Clarity Turbid (Clear) Urine pH 7.0 (5.0-9.0) Urine Specific [place] 1.009 (1.001-1.035) Urine Protein Negative (Negative) Urine Ketones Negative (Negative) Urine Blood 1+ /uL (Negative) Urine Nitrite Negative (Negative) Urine Bilirubin Negative (Negative) Urine Urobilinogen Normal mg/dL (Negative) Urine Leukocyte Esterase 3+ /uL (Negative) Urine RBC 179 /hpf (0 - 3) Urine Microscopic WBC 212 /HPF (0-3) Urine Squamous Epithelial Cells None seen /hpf (<5) Urine Bacteria Few /hpf (None Seen) Urine Mucus Few (None Seen) Urine Creatinine 34.26 mg/dL (30.0-125.0) Urine Sodium 110 mmol/L (40-220) Urine Glucose Normal mg/dL (Normal) Urine Total Protein 10.1 mg/dL (1-14) Prothrombin Time 11.3 sec (9.3-11.8) Prothrombin Time INR 1.07 (0.9-1.15) Activated Partial Thromboplast Time 31.8 SEC (24.5-34.5) Lactic Acid Level 0.6 mmol/L (0.4-2.0) Phosphorus Level 9.4 mg/dL (2.4-5.1) Magnesium Level 2.6 mg/dL (1.6-2.6) Creatine Kinase 33 U/L (46-171) Troponin I High Sensitivity 45 ng/L (</=54) Other Laboratory Tests 12/30/24 06:39 Discharge Statement: "Patient was advised to return to the ER or call 911 if any headaches, dizziness, shortness of breath, chest pain, abdominal pain, bleeding, fevers, or worsening of medical condition. Patient was counseled about treatment plan, medications, possible side effects, patientverbalized understanding. All questions were answered to the best of my ability. This discharge took greater then 30 minutes in planning, reviewing documentation, counseling the patient, and discussing with other team members." ASSESSMENT ASSESSMENT Assessment ANGELO MUNIZ MD December 31, 2024 09:36
[2024-12-31] MEDS ORDERED: AZIT-185 PO (09:40)
[2024-12-31] MEDS ORDERED: HYDR-4902 PO (09:44)
[2024-12-31 13:00] VITALS: BP 154/69; PULSE 67; RESP 18; TEMP 98.1; O2SAT 98
[2024-12-31 17:00] VITALS: BP 158/84; PULSE 78; RESP 18; TEMP 98.2; O2SAT 98
== END 2024-12-31 18:30 | disposition home or self-care (01) | DRG 697 ==
LOC: EDBD 04:31 → ER 04:31 → OVERFLOW 06:54 → TELE-CENTR 12-24 16:50
PROVIDERS: ADMIT Internal Medicine; ATTEND Internal Medicine
PROC: 0T9B70Z Drainage of Bladder with Drainage Device, Via Natural or Artificial Opening (ICD-10-PCS; 2024-12-23)
PROC: 0T9B80Z Drainage of Bladder with Drainage Device, Via Natural or Artificial Opening Endoscopic (ICD-10-PCS; 2024-12-29)
PROC: 0T7D8ZZ Dilation of Urethra, Via Natural or Artificial Opening Endoscopic (ICD-10-PCS; 2024-12-29)
PROC: 0TPBX0Z Removal of Drainage Device from Bladder, External Approach (ICD-10-PCS; 2024-12-29)
PROC: 0VTTXZZ Resection of Prepuce, External Approach (ICD-10-PCS; principal; 2024-12-29 18:00)
DX: N35.811 Other urethral stricture, male, meatal (principal); J15.9 Unspecified bacterial pneumonia; E87.20 Acidosis, unspecified; N17.9 Acute kidney failure, unspecified; N13.30 Unspecified hydronephrosis; E87.5 Hyperkalemia; D64.9 Anemia, unspecified; R79.89 Other specified abnormal findings of blood chemistry; N36.8 Other specified disorders of urethra; I10 Essential (primary) hypertension; N32.89 Other specified disorders of bladder; N32.0 Bladder-neck obstruction; N47.1 Phimosis; N40.1 Benign prostatic hyperplasia with lower urinary tract symptoms; R33.8 Other retention of urine; Z82.49 Family history of ischemic heart disease and other diseases of the circulatory system; Z79.899 Other long term (current) drug therapy
CPT/HCPCS: 10005; 36415; 71045; 72192; 74176; 76857; 76942; 77012; 80048; 80053; 81001; 82550; 82570; 82728; 82962; 83540; 83550; 83605; 83735; 84100; 84156; 84300; 84484; 85025; 85610; 85730; 87040; 93005; 96365; 96368; 96375; 97110; 97116; 97163; 97530; 99291; G0378; J0690; J0692; J1100; J1756; J1815; J1885; J2003; J2250; J2405; J2704

== ENCOUNTER 2025-01-03 13:02 | Emergency (ER) | payer MEDICAID, MEDICARE, OTHER ==
[~2025-01-03] VITALS: Ht 190.5 cm; Wt 56.0 kg
[~2025-01-03 13:02] MED LIST: AZIT-185 PO; HYDR-4902 PO
[2025-01-03 13:10] VITALS: BP 114/77; PULSE 71; RESP 18; TEMP 98.4; O2SAT 100
--- NOTE | 2025-01-03 13:19 | ED.PDOC ---
History of Present Illness HPI Comments 74 y.o nonverbal male with a history of recent admission for acute renal failure, obstructive uropathy and hyperkalemia, BIB neighbor, presents to the ED for an evaluation of a dislodged Jane catheter. Neighbor reports patient is nonverbal, was recently admitted to the ED and diagnosed with renal failure and is also taking antibiotics for a current UTI. According to our records, patient had dorsal slit procedure performed by Dr. Gentile for severe phimosis. Patient had Jane catheter placed and was prescribed antibiotics in which neighbor is giving him. Patient denies any pain, hematuria or fevers. Neighbor states patient catheter dislodged when patient turned his body, causing it to dislodge. Patient has a follow up appointment at the [facility] to establish a PCP for further work up outpatient. Time Seen by MD: 13:08 Primary Care Provider: UNKNOWN Reviewed Notes: Nurses Notes, Medications, Allergies Allergies: Coded Allergies: NO KNOWN ALLERGIES (Unverified , 08/23/17) Home Meds Active Scripts Hydrocodone-Acetaminophen (Hydrocodone Bitartrate/AC 5-325 mg) 1 Tab Tab, 1 TAB PO Q6HPRN PRN, #20 TAB Prov:ANGELO MUNIZ MD 12/31/24 Azithromycin (ZITHROMAX TABLET) 250 Mg Tb, 250 MG PO DAILY, #6 TAB take 2 tablets the first day, then 1 tablet daily x 5 days Prov:ANGELO MUNIZ MD 12/31/24 Information Source: Friend Mode of Arrival: Wheelchair Severity: Mild Timing: Hours Past Medical History PAST MEDICAL HISTORY: HTN Past Medical History (Other): Recent admission for acute renal failure, hyperkalemia, urinary retention due to severe phimosis Surgical History (Other): Pertinent for dorsal slit procedure Family History Family History: Unobtainable Social History Smoker: Non-Smoker Alcohol: Denies ETOH Use Drugs: Denies Drug Use Lives In: Home, Senior Living Constitutional: denies: chills, diaphoresis, fatigue, fever, malaise, sweats, weakness, others EENTM: denies: blurred vision, double vision, ear bleeding, ear discharge, ear drainage, ear pain, ear ringing, eye pain, eye redness, hearing loss, mouth pain, mouth swelling, nasal discharge, nose bleeding, nose congestion, nose pain, photophobia, tearing, throat pain, throat swelling, voice changes, others Respiratory: denies: cough, hemoptysis, orthopnea, SOB at rest, shortness of breath, SOB with excertion, stridor, wheezing, others Cardiovascular: denies: chest pain, dizzy spells, diaphoresis, Dyspnea on exertion, edema, irregular heart beat, left arm pain, lightheadedness, palpitations, PND, syncope, others Gastrointestinal: denies: abdomen distended, abdominal pain, blood streaked bowels, constipated, diarrhea, dysphagia, difficulty swallowing, hematemesis, melena, nausea, poor appetite, poor fluid intake, rectal bleeding, rectal pain, vomiting, others Genitourinary: denies: burning, dysuria, flank pain, frequency, hematuria, incontinence, penile discharge, penile sore, pain, testicle pain, testicle swelling, urgency, others Neurological: denies: dizziness, fainting, headache, left sided numbness, left sided weakness, numbness, paresthesia, pre-existing deficit, right sided numbness, right sided weakness, seizure, speech problems, tingling, tremors, w eakness, others Musculoskeletal: denies: back pain, gout, joint pain, joint swelling, muscle pain, muscle stiffness, neck pain, others Integumetry: denies: bruises, change in color, change in hair/nails, dryness, laceration, lesions, lumps, rash, wounds, others Allergic/Immunocompromised: denies: Difficulty Healing, Frequent Infections, Hives, Itching, others Hematologic/Lymphatic: denies: anemia, blood clots, easy bleeding, easy bruising, swollen glands, others Endocrine: denies: excessive hunger, excessive sweating, excessive thirst, excessive urination, flushing, intolerance to cold, intolerance to heat, unexplained weight gain, unexplained weight loss, others Psychiatric: denies: anxiety, bipolar disorder, depression, hopeless, panic disorder, schizophrenia, sleepless, suicidal, others All Other Systems: Deferred (Comprehensive systems review unobtainable at this time due to the patient's nonverbal status) Physical Exam General Appearance: No Apparent Distress HEENT: Other (Pupils and face symmetric. Moist mucous membranes.) Neck: Full Range of Motion, Normal Inspection Respiratory: Lungs Clear, No Accessory Muscle Use, No Respiratory Distress, Normal Breath Sounds Cardiovascular: No Edema, No JVD, Regular Rate/Rhythm Breast Exam: Deferred Gastrointestinal: Non Tender, Soft Genitalia: Other (Dorsal slit penile surgical wound with sutures in place. Wound appears crusted and unclean, however there was no erythema, edema or discharge. No urethral bleeding.) Pelvic: Deferred Rectal: Deferred Extremities: Normal inspection, Normal range of motion, Non-tender, No pedal edema Neurologic: Alert, Other (Able to transfer from wheelchair to bed independently) Cerebellar Function: NOT DONE Reflexes: NOT DONE Skin: Dry, Normal Color, Warm Lymphatic: NOT DONE Was a procedure done? Was a procedure done?: Yes Sedation Sedation?: No Other Procedure Procedure Urethral Jane catheter insertion Indication Dislodged Jane catheter Anesthetic Uro jet Prep The dorsal slit wound and entire penis was cleansed with Betadine and normal saline. Fourteen Samoan Jane catheter was inserted into the urethra with subsequent collection of dark urine within the catheter and collection container. The balloon was inflated, and the tube was secured to the right thigh. Patient tolerated the procedure well. A sterile dressing was applied to the dorsal slit wound and wrapped with [place]. Informed consent obtained: Yes Risks, benefits, and alternati: Yes Differential Dx Considerations may include: Jane catheter dislodgement, surgical wound disruption or infection, among others X-Ray, Labs, Meds, VS Vital Signs Date Time Temp Pulse Resp B/P (MAP) Pulse Ox O2 Delivery O2 Flow Rate FiO2 01/03/25 16:12 Room Air* 0 21 01/03/25 13:10 98.4 71 18 114/77 (89) 100 98.4 Lab Test 01/03/25 14:00 Range/Units White Blood Count 6.7 4.4-10.8 10^3/uL Red Blood Count 2.88 L 4.5-5.90 10^6/uL Hemoglobin 8.7 L 13.5-17.5 g/dL Hematocrit 27.1 #L 41.0-53.0 % Mean Corpuscular Volume 93.9 80.0-100.0 fL Mean Corpuscular Hemoglobin 30.3 28.0-32.0 pg Mean Corpuscular Hemoglobin Concent 32.3 32.0-36.0 g/dL Red Cell Distribution Width 16.9 H 11.8-14.3 % Platelet Count 182 140-450 10^3/uL Mean Platelet Volume 7.7 6.9-10.8 fL Neutrophils (%) (Auto) 37.0-80.0 % Lymphocytes (%) (Auto) 10.0-50.0 % Monocytes (%) (Auto) 0.0-12.0 % Basophils (%) (Auto) 0.0-2.0 % Neutrophils # (Auto) 1.6-8.6 10 ^3/uL Lymphocytes # (Auto) 0.4-5.4 10 ^3/uL Monocytes # (Auto) 0-1.3 10 ^3/uL Differential Total Cells Counted 100.0 100 Neutrophils % (Manual) 51 37.0-80.0 Band Neutrophils % (Manual) 2 Lymphocytes % (Manual) 24 10.0-50.0 Monocytes % (Manual) 22 H 0-12 Eosinophils % (Manual) 1 0-7 Basophils % (Manual) 0 0.0-2.0 Metamyelocytes % (manual) 0 Myelocytes % (Manual) 0 Promyelocytes % (Manual) 0 Blast Cells % (Manual) 0 Reactive Lymphocytes 0 Platelet Estimate Adequate Polychromasia Slight Anisocytosis (manual) Slight Sodium Level 140 136-145 mmol/L Potassium Level 4.0 3.5-5.1 mmol/L Chloride Level 102 98-107 mmol/L Carbon Dioxide Level 27 20-31 mmol/L Anion Gap 11 5-15 Blood Urea Nitrogen 27 H 9-23 mg/dL Creatinine 1.21 0.700-1.30 mg/dL Glomerular Filtration Rate Calc 62 >90 mL/min BUN/Creatinine Ratio 22.3 H 10.0-20.0 Serum Glucose 84 74-106 mg/dL Calcium Level 9.8 8.7-10.4 mg/dL X-Ray, Labs, Meds, VS Comment 74-year-old male with a pertinent history of severe phimosis, recent dorsal slit procedure presenting with Jane catheter dislodgement Vitals unremarkable Exam remarkable for a penile dorsal slit for seizure with sutures in place. Wound appears unclean, crusted, but otherwise intact without surrounding erythema or discharge. CBC remarkable for hemoglobin 8.7, hematocrit 27.1, basic metabolic panel remarkable for BUN 27 Recent visit notes reviewed, particularly Dr. Gentile's operative note. Case discussed with Dr. Story, covering for Dr. Gentile. Advised it was okay to reinsert the catheter as usual. Procedure: A Jane catheter insertion. Please see procedure note for details. On re-evaluation, patient is alert, appears comfortable and vitals were stable. Patient appears stable for discharge with close outpatient follow-up with Urology. Patient is currently on antibiotics for UTI, which should be continued. Time of 1ST Reevaluation: 13:18 Reevaluation 1ST: Unchanged Time of 2ND Reevaluation: 15:11 Patient Education/Counseling: Other Family Education/Counseling: Diagnosis, Treatment, Prognosis Departure 1 Departure Time of Disposition: 15:14 Impression: Primary Impression: Dislodged Jane catheter Qualified Codes: T83.021A - Displacement of indwelling urethral catheter, initial encounter Disposition: HOME / SELF CARE / HOMELESS Condition: Stable Referrals: TYRON GENTILE MD Additional Instructions: Follow-up with Dr. Gentile, urology, in 1-2 days. Critical Care Note Critical Care Time?: No Stability Stability form required: No I personally scribed for PATY EVANGELISTA MD ([email or web address]) on 01/03/25 at 1 3:18. Electronically submitted by Josette Cornejo ([facility]). PATY EVANGELISTA MD January 03, 2025 13:18
[2025-01-03 14:09] LABS: Hematocrit 27.1 % (41.0-53.0); Hemoglobin 8.7 g/dL (13.5-17.5); Mean Corpuscular Hemoglobin 30.3 pg (28.0-32.0); Mean Corpuscular Hgb Conc. 32.3 g/dL (32.0-36.0); Mean Corpuscular Volume 93.9 fL (80.0-100.0); Platelet Count (auto) 182 10^3/uL (140-450); Red Blood Cells 2.88 10^6/uL (4.5-5.90); Red Cell Distribution Width 16.9 % (11.8-14.3); White Blood Cell 6.7 10^3/uL (4.4-10.8)
[2025-01-03 14:21] LABS: Basophils % (manual) 0 (0.0-2.0); Blast Cells 0; Metamyelocytes % 0; Myelocytes % 0; Promyelocytes % 0; Reactive Lymphocytes 0
[2025-01-03] MEDS: LIDOCAINE 2% JELLY 11ml (GLYDO) ONE (14:21)
[2025-01-03] MEDS: LIDOCAINE 2% JELLY 11ml (GLYDO) UR ONE (14:21)
[2025-01-03 14:23] LABS: Anion Gap 11 (5-15); Carbon Dioxide 27 mmol/L (20-31)
[2025-01-03 14:24] LABS: Calcium 9.8 mg/dL (8.7-10.4)
[2025-01-03 14:28] LABS: BUN/Creatinine Ratio 22.3 (10.0-20.0); Glucose 84 mg/dL (74-106)
[2025-01-03 14:29] LABS: Blood Urea Nitrogen 27 mg/dL (9-23); Chloride 102 mmol/L (98-107); Sodium 140 mmol/L (136-145)
[2025-01-03 14:45] LABS: Band Neutrophils % (manual) 2; Eosinophils % (manual) 1 (0-7)
[2025-01-03 14:46] LABS: Lymphocytes % (manual) 24 (10.0-50.0); Monocytes % (manual) 22 (0-12)
[2025-01-03 14:47] LABS: Anisocytosis Slight; Platelet Estimate Adequate; Polychromasia Slight
== END 2025-01-03 16:12 | disposition home or self-care (01) ==
LOC: ER 13:02
DX: T83.021A Displacement of indwelling urethral catheter, initial encounter (principal); I10 Essential (primary) hypertension; Z79.899 Other long term (current) drug therapy; Y92.89 Other specified places as the place of occurrence of the external cause
CPT/HCPCS: 36415; 51702; 80048; 85007; 85027